=== PATIENT | male | born 1960 | race Caucasian/White ===

== ENCOUNTER → 2016-02-16 | Outpatient (CLI) | payer OTHER ==
[2016-02-16 14:53] LABS: URINE APPEARANCE CLEAR (CLEAR); URINE BILIRUBIN NEG (NEG); URINE COLOR YELLOW; URINE NITRITE NEG (NEG); URINE SPECIFIC GRAVITY 1.015 (1.000-1.030); UROBILINOGEN NEG (NEG)
[2016-02-16 14:55] LABS: BLOOD UREA NITROGEN 19 mg/dl (7-18); BUN/CREATININE RATIO 9.6 (10-20); CARBON DIOXIDE 27 mmol/L (21-32); CHLORIDE 107 mmol/L (98-107); GLUCOSE 142 mg/dl (70-99); PHOSPHORUS 1.6 mg/dl (2.5-4.9); POTASSIUM 3.9 mmol/L (3.5-5.1); SODIUM 142 mmol/L (136-145)
[2016-02-16 14:57] LABS: MANUAL MICROSCOPIC REQUIRED? NO; REVIEW REQ? NO
[2016-02-16 15:08] LABS: URINE PROTIEN/CREAT RATIO 1.1 (0-0.2); URINE TOTAL PROTEIN 157.1 mg/dl (0-11.9)
== END | disposition home or self-care (01) ==
LOC: C.LAB1850 13:01
PROVIDERS: ATTEND Internal Medicine Nephrology
DX: I12.9 Hypertensive chronic kidney disease with stage 1 through stage 4 chronic kidney disease, or unspecified chronic kidney disease (principal); N18.2 Chronic kidney disease, stage 2 (mild); R80.9 Proteinuria, unspecified; E55.9 Vitamin D deficiency, unspecified

== ENCOUNTER → 2016-04-30 | Outpatient (CLI) | payer OTHER ==
[2016-04-30 11:08] LABS: MANUAL MICROSCOPIC REQUIRED? NO; REVIEW REQ? NO; URINE APPEARANCE CLEAR (CLEAR); URINE BILIRUBIN NEG (NEG); URINE COLOR YELLOW; URINE EPITHELIAL CELL AUTO 0-5 /lpf (0-5); URINE NITRITE NEG (NEG); URINE PH 6.5 (4.5-7.5); URINE SPECIFIC GRAVITY 1.001 (1.000-1.030); UROBILINOGEN NEG (NEG)
[2016-04-30 11:16] LABS: HEMATOCRIT 42.8 % (42-52); MEAN CORPUSCULAR HEMOGLOBIN 29.7 pg (25-34); MEAN CORPUSCULAR HGB CONC 34.1 g/dl (32-36); PLATELET COUNT 280 K/uL (130-400); RED BLOOD COUNT 4.92 M/uL (4.7-6.1); WHITE BLOOD COUNT 8.18 K/uL (4.8-10.8)
[2016-04-30 11:42] LABS: BLOOD UREA NITROGEN 18 mg/dl (7-18); BUN/CREATININE RATIO 10.8 (10-20); CALCIUM 9.1 mg/dl (8.5-10.1); CARBON DIOXIDE 27 mmol/L (21-32); CHLORIDE 107 mmol/L (98-107); GLUCOSE 77 mg/dl (70-99); POTASSIUM 3.9 mmol/L (3.5-5.1); SODIUM 143 mmol/L (136-145)
[2016-04-30 11:43] LABS: PHOSPHORUS 2.7 mg/dl (2.5-4.9)
[2016-04-30 11:51] LABS: URINE PROTIEN/CREAT RATIO 1.4 (0-0.2); URINE TOTAL PROTEIN 29.4 mg/dl (0-11.9)
== END | disposition home or self-care (01) ==
LOC: C.LAB1850 10:00
PROVIDERS: ATTEND Internal Medicine Nephrology
DX: N18.2 Chronic kidney disease, stage 2 (mild) (principal); R31.29 Other microscopic hematuria; E55.9 Vitamin D deficiency, unspecified

== ENCOUNTER → 2016-10-27 | Outpatient (CLI) | payer OTHER ==
[2016-10-27 14:09] LABS: HEMATOCRIT 44.6 % (42-52); MEAN CELL VOLUME 88.8 fL (80-100); MEAN CORPUSCULAR HEMOGLOBIN 29.3 pg (25-34); MEAN PLATELET VOLUME 10.3 fL (7.4-10.4); PLATELET COUNT 289 K/uL (130-400); RED BLOOD COUNT 5.02 M/uL (4.7-6.1); WHITE BLOOD COUNT 9.19 K/uL (4.8-10.8)
[2016-10-27 14:18] LABS: URINE APPEARANCE CLEAR (CLEAR); URINE BILIRUBIN NEG (NEG); URINE COLOR YELLOW; URINE EPITHELIAL CELL AUTO 0-5 /lpf (0-5); URINE NITRITE NEG (NEG); UROBILINOGEN NEG (NEG)
[2016-10-27 14:23] LABS: MANUAL MICROSCOPIC REQUIRED? NO; REVIEW REQ? NO
[2016-10-27 14:35] LABS: URINE PROTIEN/CREAT RATIO 1.2 (0-0.2); URINE TOTAL PROTEIN 43.6 mg/dl (0-11.9)
[2016-10-27 14:36] LABS: ALT/SGPT 21 U/L (12-78); BLOOD UREA NITROGEN 20 mg/dl (7-18); BUN/CREATININE RATIO 10.8 (10-20); CALCIUM 9.1 mg/dl (8.5-10.1); CARBON DIOXIDE 26 mmol/L (21-32); CHLORIDE 109 mmol/L (98-107); GLUCOSE 86 mg/dl (70-99); POTASSIUM 3.6 mmol/L (3.5-5.1); SODIUM 140 mmol/L (136-145)
[2016-10-27 14:39] LABS: ALB/GLOB RATIO 0.7 (0.9-2); ALKALINE PHOSPHATASE 67 U/L (45-117); AST/SGOT 15 U/L (15-37)
== END | disposition home or self-care (01) ==
LOC: C.LAB1850 13:13
PROVIDERS: ATTEND Internal Medicine Nephrology
DX: I12.9 Hypertensive chronic kidney disease with stage 1 through stage 4 chronic kidney disease, or unspecified chronic kidney disease (principal); R31.29 Other microscopic hematuria; R80.9 Proteinuria, unspecified; E55.9 Vitamin D deficiency, unspecified; N18.2 Chronic kidney disease, stage 2 (mild)

== ENCOUNTER 2017-03-02 05:02 | Day surgery (SDC) | payer OTHER ==
[2017-02-08 14:37] VITALS: BMI 37.0
--- NOTE | 2017-02-08 15:06 | PAT Medication Instructions ---
Service Date Feb 08, 2017. Current Home Medication List Ibuprofen (Advil), 200 MG PO PRN Lisinopril (Zestril), 10 MG PO BID Medication Instructions For Your Scheduled Surgery - Hold the following medications 24 hours prior to surgery: Lisinopril (Zestril), 10 MG PO BID - Hold the following medications the morning of surgery: Ibuprofen (Advil), 200 MG PO PRN (otherwise okay to continue per surgeon *nothing to eat or drink after midnight If you have any questions please call us at [phone] or [phone] or [phone]
[2017-02-08 15:33] LABS: BASO % 0.5 %; BASO ABS # 0.04 K/uL (0-0.2); EOS % 1.4 %; EOS ABS # 0.12 K/uL (0-0.5); HEMATOCRIT 44.9 % (42-52); HEMOGLOBIN 15.1 g/dL (14.0-18.0); IG# 0.02 K/uL (0.00-0.02); LYMPH % 22.9 %; LYMPH ABS # 2.02 K/uL (1.2-3.4); MEAN CELL VOLUME 88.2 fL (80-100); MEAN CORPUSCULAR HEMOGLOBIN 29.7 pg (25-34); MEAN CORPUSCULAR HGB CONC 33.6 g/dl (32-36); MEAN PLATELET VOLUME 10.2 fL (7.4-10.4); MONO % 7.3 %; MONO ABS # 0.64 K/uL (0.11-0.59); NEUT % 67.7 %; NEUT ABS # 5.98 K/uL (1.4-6.5); PLATELET COUNT 267 K/uL (130-400); RED CELL DISTRIBUTION WIDTH CV 12.6 % (11.5-14.5); RED CELL DISTRIBUTION WIDTH SD 40.5 fL (36.4-46.3); WHITE BLOOD COUNT 8.82 K/uL (4.8-10.8)
[2017-02-08 16:40] LABS: CALCIUM 9.1 mg/dl (8.5-10.1); CREATININE 1.78 mg/dl (0.60-1.40); POTASSIUM 4.4 mmol/L (3.5-5.1)
[~2017-03-02] VITALS: Ht 188 cm; Wt 129.2 kg
[~2017-03-02 05:02] MED LIST: IBUP-1050 PO; LISI-461 PO
[2017-03-02 05:35] VITALS: BP 153/85; PULSE 60; TEMP 36.6; O2SAT 96; Ht 188 cm; Wt 129.2 kg
[2017-03-02] MEDS ORDERED: LACTATED RINGER'S 1000ML 1,000 ML IV SCH (06:00)
[2017-03-02] MEDS ORDERED: CEFAZOLIN 3000MG IV PUSH 15 ML IV SCH (06:00)
[2017-03-02] MEDS ORDERED: EpHEDrine SULFATE INJ 50 MG/ML AMP IV PRN (06:30)
[2017-03-02] MEDS ORDERED: PROMETHAZINE HCL INJ 12.5 MG in SODIUM CHLORIDE 0.9% 50ML 50 ML IV PRN (06:30)
[2017-03-02] MEDS ORDERED: ONDANSETRON INJ 2 MG/ML 2 ML VIAL IV PRN ×2 (06:30→07:45)
[2017-03-02] MEDS ORDERED: HYDROmorphone INJ 1 MG/ML SYR IV PRN (06:30)
[2017-03-02] MEDS ORDERED: FENTANYL CITRATE INJ 50 MCG/1 ML 2 ML VIAL IV PRN (06:30)
[2017-03-02] MEDS ORDERED: ATROPINE SULFATE 0.1 MG/ML 5ML SYR IV PRN (06:30)
[2017-03-02] MEDS ORDERED: LIDOCAINE HCL 1% 20 ML VIAL ONE (06:34)
[2017-03-02] MEDS ORDERED: BUPIVACAINE 0.5 % 5 MG/1 ML MPF 30ML VIAL ONE (06:35)
[2017-03-02] MEDS ORDERED: CEFAZOLIN SOD 1 GM VIAL ONE (06:35)
--- NOTE | 2017-03-02 06:42 | History & Physical Bridge Note ---
H&P Re-Evaluation Bridge Note: I have examined the patient, reviewed the History & Physical and in the interval since the performance of the History & Physical I have noted the following changes of clinical significance: No changes noted
[2017-03-02] MEDS ORDERED: PROPOFOL IV EMULSION 10 MG/ML 20 ML VIAL IV ONE (06:45)
[2017-03-02] MEDS ORDERED: LIDOCAINE HCL 2% 2 ML VIAL (20MG/ML) ONE (06:45)
[2017-03-02] MEDS ORDERED: FENTANYL CITRATE INJ 50 MCG/1 ML 2 ML VIAL ONE ×2 (06:45→07:14)
[2017-03-02] MEDS ORDERED: MIDAZOLAM HCL 1 MG/ML 2ML VIAL ONE (06:45)
[2017-03-02] MEDS ORDERED: ONDANSETRON INJ 2 MG/ML 2 ML VIAL ONE (06:45)
[2017-03-02] MEDS ORDERED: ACETAMINOPHEN 1000 MG/100 ML IV IV ONE (06:50)
[2017-03-02] MEDS ORDERED: NEOSTIGMINE METHYLSULFATE 5 MG/5 ML SYR ONE (07:32)
[2017-03-02] MEDS ORDERED: GLYCOPYRROLATE INJ 0.2 MG/ML VIAL ONE (07:32)
[2017-03-02] MEDS ORDERED: ROCURONIUM BROMIDE 10 MG/ML 5 ML VIAL IV ONE (07:34)
--- NOTE | 2017-03-02 07:37 | [facility] Operative Report ---
Operative Report Operative Date Mar 02, 2017. Pre-Operative Diagnosis Umbilical Hernia Post-Operative Diagnosis Same as preop Procedure(s) Performed Open Umbilical Hernia Repair Surgeon Dr. Cardenas [employer] Sales Account Executive Surgeon(s) Moises Breen PA-C Estimated Blood Loss 5 ml Findings 1.75 cm defect- no mesh placed Specimens A. Hernia Contents Anesthesia gen Complication(s) None Disposition Recovery Room / PACU I attest to the content of the Intraoperative Record and any orders documented therein. Any exceptions are noted below.
[2017-03-02] MEDS ORDERED: HYDR-5688 PO ×2 (07:39)
--- NOTE | 2017-03-02 07:41 | Discharge Instructions ---
Discharge Instructions Date of Service Mar 02, 2017. Visit Reason for Visit: Umbilical Hernia Discharge Discharge Diagnosis / Problem: umbilical hernia Discharge Goals Goal(s): Decrease discomfort, Improve function, Improve disease control Activity Recommendations Activity Limitations: as noted below Lifting Limitations: no more than 25 pounds Exercise/Sports Limitations: until after follow-up appointment May Resume Sexual Activity: when tolerated Shower/Bathe: tomorrow Driving or Machine Use: resume 3 days after discharge Anesthesia . Post Anesthesia Instructions: If you have had General Anesthesia or IV Sedation: * Do not drive today. * Resume driving when surgeon permits. * Do not make important decisions or sign legal documents today. * Call surgeon for: 1. Temperature elevations greater than 101 degrees F. 2. Uncontrollable pain. 3. Excessive bleeding. 4. Persistent nausea and vomiting. 5. Medication intolerance (nausea, vomiting or rash). * For nausea and vomiting use only clear liquids such as: tea, soda, bouillon until nausea subsides, then gradually increase diet as tolerated. * If you have any concerns or questions, call your surgeon's office. If physician is unavailable and it is an emergency, call 911 or go to the nearest emergency room. . Instructions / Follow-Up Instructions / Follow-Up SPECIAL CARE INSTRUCTIONS: * Cover incisions and change daily for comfort/drainage. * May use ibuprofen for pain as tolerated. * Expect some swelling and bruising. Call your doctor if: * Temperature above 101 degrees * Pain not relieved by pain medicine ordered * There is increased drainage or redness from any incision * You have any unanswered questions or concerns [phone]. FOLLOW UP VISIT: If not already scheduled, please call the office for a follow-up visit. for next week- some suture removal OFFICE PHONE NUMBER: Dr. Cardenas Office Diet Recommendations Recommended Home Diet: resume previous diet Procedures Procedures Performed: Open Umbilical Hernia Repair Pending Studies Studies pending at discharge: no Medical Emergencies . Who to Call and When: Medical Emergencies: If at any time you feel your situation is an emergency, please call 911 immediately. . Non-Emergent Contact Non-Emergency issues call your: Primary Care Provider, Surgeon . . "Provider Documentation" section prepared by Derrick Cardenas. .
[2017-03-02] MEDS ORDERED: HYDROCODONE/ACETAMOPHEN 5/325MG TAB PO PRN ×2 (07:45)
--- NOTE | 2017-03-02 08:06 | OPERATIVE REPORT ---
DATE OF OPERATION: 03/02/2017 NAME OF OPERATION: Umbilical hernia repair. PREOPERATIVE DIAGNOSIS: Umbilical hernia. POSTOPERATIVE DIAGNOSIS: Same. STAFF SURGEON: Dr. Derrick Cardenas. ANESTHESIA: General. OCCUPANCY SPECIALIST: Moises Breen PA-C FINDINGS: The patient had a 4-5 cm hernia sac, containing omentum and a 1.75-cm defect. DESCRIPTION OF PROCEDURE: The patient was brought into the operating room and placed on the operating table in the supine position. Pneumatic stockings and orogastric tube were placed. After appropriate intubation, his abdomen was prepped and draped in the usual fashion. Incision was made just below the umbilicus, carrying dissection down, and identifying the hernia sac, which was opened. It contained omentum. Segment of the omentum was excised. The remainder was reduced. The hernia defect was 1.75 cm. I did not feel it required mesh. The edges of the fascia were mobilized as well as dissecting the umbilicus away from the fascia. The defect was closed using interrupted 0 Ethibond suture. Some of the subcutaneous tissue was reapproximated using 2-0 plain catgut suture and then the umbilicus reattached to the deep tissue using 2-0 chromic catgut suture and then, the skin reapproximated using 5-0 Prolene suture. Dressing applied and the patient transferred to recovery room in stable condition. My customer support assistant helped with prepping and draping, exposing the hernia, repair of the hernia and closure of the abdomen. I attest to the content of the Intraoperative Record and any orders documented therein. Any exception s are noted below.
--- NOTE | 2017-03-02 08:33 | Anesthesiology Progress Note ---
Anesthesia Post Op Note Date & Time Mar 02, 2017 at 08:33 Vital Signs Pain Intensity: 0 Vital Signs Past 12 Hours Date Time Temp Pulse Resp B/P (MAP) Pulse Ox O2 Delivery O2 Flow Rate FiO2 03/02/17 08:20 36.4 60 14 129/77 94 Room Air 03/02/17 08:10 76 16 117/79 98 Oxymask 8 03/02/17 08:00 82 16 121/79 97 Oxymask 8 03/02/17 07:51 37.2 82 16 114/78 95 Oxymask 8 03/02/17 05:35 36.6 60 18 153/85 (107) 96 Room Air Notes Mental Status: alert / awake / arousable, participated in evaluation Pt Amnestic to Procedure: Yes Nausea / Vomiting: adequately controlled Pain: adequately controlled Airway Patency, RR, SpO2: stable & adequate BP & HR: stable & adequate Hydration State: stable & adequate Anesthetic Complications: no major complications apparent
[2017-03-02 08:40] VITALS: BP 133/84; PULSE 63; TEMP 36.4; O2SAT 97
[2017-03-02 09:10] VITALS: BP 133/79; PULSE 52; O2SAT 98
[2017-03-02 09:45] VITALS: BP 120/75; PULSE 58; TEMP 36.5; O2SAT 94
== END 2017-03-02 10:20 | disposition home or self-care (01) ==
LOC: C.ACU 05:02
PROVIDERS: ATTEND Surgery
DX: K42.9 Umbilical hernia without obstruction or gangrene (principal); I12.9 Hypertensive chronic kidney disease with stage 1 through stage 4 chronic kidney disease, or unspecified chronic kidney disease; N18.2 Chronic kidney disease, stage 2 (mild); Z98.52 Vasectomy status; E66.9 Obesity, unspecified; Z68.37 Body mass index [BMI] 37.0-37.9, adult; Z90.89 Acquired absence of other organs; Z83.3 Family history of diabetes mellitus

== ENCOUNTER → 2017-03-09 | Outpatient (CLI) | payer OTHER ==
[~2017-03-09] MED LIST changes: +HYDR-5688 PO
[2017-03-09 15:34] LABS: HEMATOCRIT 41.9 % (42-52); MEAN CELL VOLUME 88.8 fL (80-100); MEAN CORPUSCULAR HEMOGLOBIN 29.7 pg (25-34); MEAN CORPUSCULAR HGB CONC 33.4 g/dl (32-36); MEAN PLATELET VOLUME 10.2 fL (7.4-10.4); PLATELET COUNT 293 K/uL (130-400); RED CELL DISTRIBUTION WIDTH CV 12.8 % (11.5-14.5); RED CELL DISTRIBUTION WIDTH SD 41.1 fL (36.4-46.3); WHITE BLOOD COUNT 9.09 K/uL (4.8-10.8)
[2017-03-09 15:45] LABS: ALBUMIN 3.1 gm/dl (3.4-5.0); BLOOD UREA NITROGEN 22 mg/dl (7-18); CALCIUM 9.2 mg/dl (8.5-10.1); CARBON DIOXIDE 27 mmol/L (21-32); CREATININE 1.69 mg/dl (0.60-1.40); GLUCOSE 114 mg/dl (70-99); POTASSIUM 3.9 mmol/L (3.5-5.1); SODIUM 137 mmol/L (136-145)
== END | disposition home or self-care (01) ==
LOC: C.LAB1850 14:03
PROVIDERS: ATTEND Internal Medicine Nephrology
DX: I12.9 Hypertensive chronic kidney disease with stage 1 through stage 4 chronic kidney disease, or unspecified chronic kidney disease (principal); N18.2 Chronic kidney disease, stage 2 (mild); E55.9 Vitamin D deficiency, unspecified; R80.9 Proteinuria, unspecified

== ENCOUNTER 2022-02-28 22:36 | Observation (INO) ==
[2022-02-28] MEDS ORDERED: ASPIRIN CHEW 324 MG PO STA (23:01)
[2022-02-28] MEDS ORDERED: fentaNYL citrate 100 MCG/2 ML VIAL IV STA (23:01)
[2022-02-28] MEDS ORDERED: GI COCKTAIL ED USE PO ONE (23:01)
[2022-02-28 23:02] LABS: Basophils # (auto) 0.05 K/uL (0-0.2); Basophils % (auto) 0.4 %; Eosinophils # (auto) 0.07 K/uL (0-0.50); Eosinophils % (auto) 0.6 %; Hematocrit (blood only) 43.4 % (40.1-51.0); Hemoglobin 14.7 g/dl (14.0-18.0); Immature Granulocytes # (auto) 0.06 K/uL (0.00-0.02); Immature Granulocytes % (auto) 0.5 %; Lymphocytes # (auto) 1.24 K/uL (1.2-3.4); Lymphocytes % (auto) 10.3 %; Mean Corpuscular Hemoglobin 29.5 pg (25.0-34.0); Mean Corpuscular Hgb Conc 33.9 g/dL (32.0-36.0); Mean Platelet Volume 10.2 fL (9.4-12.4); Monocytes # (auto) 0.79 K/uL (0.24-0.82); Monocytes % (auto) 6.6 %; Neutrophils # (auto) 9.81 K/uL (1.4-6.5); Neutrophils % (auto) 81.6 %; Platelet Count 292 K/uL (130-400); RDW Coefficient of Variation 14.5 % (11.5-14.5); RDW Standard Deviation 45.7 fL (36.4-46.3); Red Blood Count 4.99 M/uL (4.63-6.08); White Blood Count 12.02 K/ul (4.8-10.8)
--- NOTE | 2022-02-28 23:07 | Emergency Department Note ---
History of Present Illness General Chief complaint: Chest Pain Stated complaint: CHEST PAIN Time Seen by Provider: 02/28/22 22:51 History of Present Illness Maximum Pain Intensity: 8 61-year-old male presents emergency department with substernal chest pressure described as burning sensation. Patient states it started at 4:30 PM approximately 2 hours after he had eaten. Patient is undergoing evaluation for a gallstone enlarged gallbladder as well. Patient has a history of CKD and hy pertension. Patient states that he took Tums at home patient states he has been evaluated in the past for similar presentation. Patient states that he cannot get the burning to resolve. States the burning is midsternal nonradiating no associated shortness of breath however he does state diaphoresis and some nausea. There are no other mitigating or alleviating factors; pt took protonix prior to arrival Home Medications Medication Instructions Recorded Confirmed Type ergocalciferol (vitamin D2) 1,250 1,250 mcg PO .COMPLEX #12 caps 08/11/21 02/18/22 Rx mcg (50,000 unit) capsule lisinopril 10 mg tablet 10 mg PO BID #90 tabs 10/20/21 02/18/22 Rx albuterol sulfate 90 mcg/actuation 2 puff inhalation .Q3HRS PRN Cough 12/03/21 02/18/22 History aerosol inhaler aspirin 81 mg tablet,delayed 81 mg PO DAILY 12/30/21 02/18/22 History release pantoprazole 40 mg tablet,delayed 40 mg PO DAILY 12/30/21 02/18/22 History release (Protonix) Allergies Allergy/AdvReac Type Severity Reaction Status Date / Time pollen extracts Allergy Mild runny nose Verified 02/18/22 09:00 adhesive Allergy Unknown TORE SKIN Verified 02/18/22 09:00 OFF WITH TAPE Past Med/Surg History Medical History Chronic kidney disease, stage II (mild) History of bronchitis Hx of kidney disease Hypertension Shingles Vitamin D deficiency Surgical History H/O colonoscopy (~2020) H/O hernia repair (03/02/17) Umbilical hernia repair H/O oral surgery Hx of appendectomy Hx of vasectomy No pertinent past surgical history Family History Mother Diabetes Other Adopted Social History Smoking Status: Never smoker Hx Alcohol Use: Yes Preferred Language: Kinyarwanda marital status: 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 How many Children do You have: 2 Feels Safe at Home: Yes during the past year weight has: remained stable Review of Systems A total of 10 systems reviewed and were otherwise negative Constitutional: no fever Respiratory: no cough Cardiovascular: + chest pain Gastrointestinal: + belching and + heartburn Physical Exam Vital Signs Vital Signs - 24 hr 02/28/22 22:37 02/28/22 22:52 02/28/22 22:50 Temperature 36.5 C Temperature Source Temporal Artery Scan Pulse Rate 78 68 Pulse Rate [Apical] 67 Pulse Rate from SpO2 Sensor Pulse Rhythm Regular Pulse Strength Normal Respiratory Rate 22 20 20 Respiratory Effort / Characteristics Non-Labored Spontaneous Respiratory Depth Normal Respiratory Pattern Regular Blood Pressure 208/103 H Blood Pressure [Left Arm] 186/102 H Blood Pressure Mean 138 Blood Pressure Mean [Left Arm] 130 Blood Pressure Position Sitting Blood Pressure Position [Left Arm] Lying Pulse Oximetry 97 95 94 Oxygen Delivery Method Room Air Room Air Room Air Sepsis Recent Fever Within 48 Hours No Sepsis New/Unexplained Change in Mental Status N/A Sepsis Action Taken by Nursing No Action Required 02/28/22 23:00 02/28/22 23:57 03/01/22 01:00 Temperature Temperature Source Pulse Rate 74 65 62 Pulse Rate [Apical] Pulse Rate from SpO2 Sensor 73 66 60 Pulse Rhythm Pulse Strength Respiratory Rate 13 17 16 Respiratory Effort / Characteristics Respiratory Depth Respiratory Pattern Blood Pressure 199/111 H 189/95 H Blood Pressure [Left Arm] Blood Pressure Mean 140 126 Blood Pressure Mean [Left Arm] Blood Pressure Position Blood Pressure Position [Left Arm] Pulse Oximetry 98 99 98 Oxygen Delivery Method Room Air Room Air Room Air Sepsis Recent Fever Within 48 Hours Sepsis New/Unexplained Change in Mental Status Sepsis Action Taken by Nursing GENERAL: Patient is awake alert in no acute distress patient is resting comfortably and showing no signs of anxiety EYES: The conjunctivae are clear. The pupils are round and reactive. EARS, NOSE, MOUTH AND THROAT: The nose is without any evidence of any deformity. Mucous membranes are moist. Tongue is midline. NECK: The neck is nontender and supple. RESPIRATORY: Normal respiratory effort is noted there is no evidence of wheezing rhonchi or rales CARDIOVASCULAR: Regular rate and rhythm noted there no murmurs rubs or gallops normal S1 normal S2. GASTROINTESTINAL: The abdomen is soft. Abdomen is nontender. BACK: No midline tenderness or or step-off noted range of motion in flexion extension as well as rotation no signs of muscle spasm noted MUSCULOSKELETAL/EXTREMITIES: There is no evidence of gross deformity full range of motion is noted in the hips and shoulders. SKIN: There is no obvious evidence of any rash. There are no petechiae, pallor or cyanosis noted. NEUROLOGIC: Patient is awake alert and oriented x3 strength is symmetric PSYCH: Normal affect Course Reevaluation(s) Reevaluation #1: Patient's burning sensation in the chest has decreased significantly. I discussed evaluation with the patient at bedside. There is also decreased Time: : Consultations Consultation #1: Sp[facility] in this patient will be admitted inpatient for further evaluation of chest pain Time: :46 Administered Medications Discontinued Medications Al Hydrox/Mg Hydrox/Simethicone (Gi Cocktail Ed Use) 1 dose PO ONE ONE Stop: 02/28/22 23:02 Last Admin: 02/28/22 23:13 Dose: 1 dose Documented By: AKI Aspirin (Aspirin Chew 324 Mg) 324 mg PO NOW STA Stop: 02/28/22 23:02 Last Admin: 02/28/22 23:11 Dose: 324 mg Documented By: AKI Fentanyl Citrate (Fentanyl Citrate 100 Mcg/2 Ml Vial) 50 mcg IV NOW STA Stop: 02/28/22 23:02 Last Admin: 02/28/22 23:11 Dose: 50 mcg Documented By: AKI Fentanyl Citrate (Fentanyl Citrate 100 Mcg/2 Ml Vial) 50 mcg IV NOW STA Stop: 03/01/22 00:04 Last Admin: 03/01/22 00:10 Dose: 50 mcg Documented By: AKI Medical Decision Making Medical Records Attestation: I reviewed the patient's medical records. Home Medications Current Medication List: was personally reviewed by me Laboratory Data Attestation: I reviewed the patient's lab results. Patient has a history of CKD his creatinine is around baseline, delta troponin i ncreased from 7-11 however still negative at this time 02/28/22 22:45 02/28/22 22:45 Lab Results 02/28/22 02/28/22 03/01/22 Range/Units 22:45 22:45 00:39 WBC 12.02 H (4.8-10.8) K/ul RBC 4.99 (4.63-6.08) M/uL Hgb 14.7 (14.0-18.0) g/dl Hct 43.4 (40.1-51.0) % MCV 87.0 (80.0-100.0) fL MCH 29.5 (25.0-34.0) pg MCHC 33.9 (32.0-36.0) g/dL RDW Std Deviation 45.7 (36.4-46.3) fL RDW Coeff of Tessa 14.5 (11.5-14.5) % Plt Count 292 (130-400) K/uL MPV 10.2 (9.4-12.4) fL Immature Gran % (Auto) 0.5 % Neut % (Auto) 81.6 % Lymph % (Auto) 10.3 % [place] % (Auto) 6.6 % Eos % (Auto) 0.6 % Baso % (Auto) 0.4 % Neut # (Auto) 9.81 H (1.4-6.5) K/uL Lymph # (Auto) 1.24 (1.2-3.4) K/uL [place] # (Auto) 0.79 (0.24-0.82) K/uL Eos # (Auto) 0.07 (0-0.50) K/uL Baso # (Auto) 0.05 (0-0.2) K/uL Immature Gran # (Auto) 0.06 H (0.00-0.02) K/uL Sodium 139 (136-145) mmol/L Potassium 4.0 (3.5-5.1) mmol/L Chloride 105 (98-107) mmol/L Carbon Dioxide 27 (21-32) mmol/L Anion Gap 7 (3-11) BUN 27 H (6-23) mg/dl Creatinine 2.48 H (0.6-1.4) mg/dl Est Cr Clr Drug Dosing 43.9 ml/min Est GFR ( Amer) 31.3 ml/min Est GFR (Non-Af Amer) 27.0 ml/min BUN/Creatinine Ratio 10.9 (10-20) Glucose 162 H (70-99(Fasting)) mg/dl Calcium 9.5 (8.5-10.1) mg/dl Total Bilirubin 0.4 (0.2-1.0) mg/dl AST 16 (13-39) U/L ALT 16 (7-52) U/L Alkaline Phosphatase 72 (34-104) U/L Troponin I High Sens 7.0 11.9 D (0-20) pg/ml Total Protein 7.6 (6.0-8.3) gm/dl Albumin 4.1 (3.4-5.0) gm/dl Globulin 3.5 (2.5-4.0) gm/dl Albumin/Globulin Ratio 1.2 (0.9-2) Lipase 56 (11-82) U/L Imaging Data Attestation: I personally reviewed and interpreted this imaging study as follows: My Impression: Review she reports Radiologist's Impression: Chest X-Ray 02/28/22 22:52 SINGLE VIEW CHEST CLINICAL HISTORY: Atypical chest pain FINDINGS: An AP, portable, upright chest radiograph is compared to study dated 12/03/2021. The heart is enlarged. The pulmonary vasculature is noncongested. The lungs and pleural spaces are clear noting bibasilar scarring/atelectasis. No pneumothorax is seen. The skeletal structures are osteopenic. The bony thorax is grossly intact. IMPRESSION: No acute cardiopulmonary abnormality. ACT 112: Negative or not required by law. Electronically signed by: Zelalem Crowe M.D. 02/28/2022 11:15 PM Gallbladder Ultrasound 02/28/22 23:08 ULTRASOUND RIGHT UPPER QUADRANT ABDOMEN CLINICAL HISTORY: Epigastric and right upper quadrant abdominal pain. COMPARISON STUDY: No priors. TECHNIQUE: Real-time, grayscale, and color flow sonography of the right upper quadrant of the abdomen was performed. Images are reviewed in the transverse and longitudinal planes. FINDINGS: Liver: The liver is top normal in size and demonstrates heterogeneous increased echotexture suggesting steatosis. There is no intrahepatic biliary ductal dilatation. The main portal vein is patent. Gallbladder: There are numerous shadowing calcified gallstones. There is no gallbladder wall thickening or pericholecystic fluid. A sonographic Burciaga's could not be assessed as the patient received analgesia. The common bile duct measures up to 0.4 cm in diameter. Pancreas: Not visualized due to overlying bowel gas. Right kidney: Survey images of the right kidney demonstrate cortical atrophy. Echotexture is increased suggesting medical renal disease. There is no hydronephrosis. Ascites: None. IMPRESSION: 1. Cholelithiasis without sonographic evidence of acute cholecystitis. 2. Hepatic steatosis. 3. Nonvisualization of the pancreas. ACT 112: Negative or not required by law. Electronically signed by: Zelalem Crowe M.D. 03/01/2022 12:25 AM ECG Data Attestation: I personally reviewed and interpreted this ECG as follows: Additional Comments: EKG interpreted by me normal sinus rhythm rate of 84 normal intervals normal axis no obvious ST segment elevation or depression no prior currently available for comparison MDM Narrative Medical decision making gnosis includes angina unstable angina acute coronary syndrome acute NM acute cholecystitis acute biliary colic acute gastritis acute esophagitis. Plan is to check EKG, labs, chest x-ray, ultrasound. Patient will be started on GI cocktail aspirin and IV opiate. Nurses notes have been reviewed by me EKG interpreted independently by me Nephrology note of February 22, 2022 was reviewed by me -patient has a history of stable hypertension and CKD Patient has a slight elevation in white blood cell count has Cholelithiasis without evidence of cholecystitis on ultrasound, has a troponin that increased from 7-11, has a nonischemic EKG. Patient's heart score is a 4. Patient will be admitted to the hospitalist service and that is agreed upon by Dr. Martinez at 1:45 AM Patient will be further evaluated for chest pain and this. At this point time I do not suspect cholecystitis as the cause of this patient's pain it seems to be more in his chest. Patient did have elevated blood pressure that was treated with IV opiates, patient was also given aspirin. Impression & Plan Chest pain, Cholelithiasis, HTN (hypertension) Discharge Plan Visit Data Chief Complaint: Chest Pain Stated Complaint: CHEST PAIN ED Provider: Bart Luna Discharge Problem: Chest pain, Cholelithiasis, HTN (hypertension) Patient Disposition: Admitted As Inpatient Forms Stand Alone Forms: My [facility] Prescriptions Prescriptions: No Action ergocalciferol (vitamin D2) 1,250 mcg (50,000 unit) capsule 1,250 mcg PO .COMPLEX Qty: 12 0RF Rx Instructions: 1,250 mcg PO monthly as maintenance dosing; lisinopril 10 mg tablet 10 mg PO BID Qty: 90 3RF aspirin 81 mg tablet,delayed release (DR/EC) 81 mg PO DAILY pantoprazole [Protonix] 40 mg tablet,delayed release (DR/EC) 40 mg PO DAILY albuterol sulfate 90 mcg/actuation HFA aerosol inhaler 2 puff INHALATION .Q3HRS PRN (Reason: Cough) Referrals Referrals: Fernando Pennington DO [Primary Care Provider] -
--- NOTE | 2022-02-28 23:17 | XRay Report ---
SINGLE VIEW CHEST CLINICAL HISTORY: Atypical chest pain FINDINGS: An AP, portable, upright chest radiograph is compared to study dated 12/03/2021. The heart is enlarged. The pulmonary vasculature is noncongested. The lungs and pleural spaces are clear noting bibasilar scarring/atelectasis. No pneumothorax is seen. The skeletal structures are osteopenic. The bony thorax is grossly intact. IMPRESSION: No acute cardiopulmonary abnormality. ACT 112: Negative or not required by law. Electronically signed by: Zelalem Crowe M.D. 02/28/2022 11:15 PM
[2022-02-28 23:24] LABS: Albumin Globulin Ratio 1.2 (0.9-2); Albumin Level 4.1 gm/dl (3.4-5.0); BUN Creatinine Ratio 10.9 (10-20); Bilirubin,Total 0.4 mg/dl (0.2-1.0); Calcium 9.5 mg/dl (8.5-10.1); Creatinine Clr Calc Pharmacy 43.9 ml/min; Est GFR (African American) 31.3 ml/min; Globulin 3.5 gm/dl (2.5-4.0); Total Protein 7.6 gm/dl (6.0-8.3)
[2022-03-01] MEDS ORDERED: fentaNYL citrate 100 MCG/2 ML VIAL IV STA (00:03)
--- NOTE | 2022-03-01 00:28 | Ultrasound Report ---
ULTRASOUND RIGHT UPPER QUADRANT ABDOMEN CLINICAL HISTORY: Epigastric and right upper quadrant abdominal pain. COMPARISON STUDY: No priors. TECHNIQUE: Real-time, grayscale, and color flow sonography of the right upper quadrant of the abdomen was performed. Images are reviewed in the transverse and longitudinal planes. FINDINGS: Liver: The liver is top normal in size and demonstrates heterogeneous increased echotexture suggestin g steatosis. There is no intrahepatic biliary ductal dilatation. The main portal vein is patent. Gallbladder: There are numerous shadowing calcified gallstones. There is no gallbladder wall thickeni ng or pericholecystic fluid. A sonographic Burciaga's could not be assessed as the patient received gladis lgesia. The common bile duct measures up to 0.4 cm in diameter. Pancreas: Not visualized due to overlying bowel gas. Right kidney: Survey images of the right kidney demonstrate cortical atrophy. Echotexture is increase d suggesting medical renal disease. There is no hydronephrosis. Ascites: None. IMPRESSION: 1. Cholelithiasis without sonographic evidence of acute cholecystitis. 2. Hepatic steatosis. 3. Nonvisualization of the pancreas. ACT 112: Negative or not required by law. Electronically signed by: Zelalem Crowe M.D. 03/01/2022 12:25 AM
[2022-03-01] MEDS ORDERED: MoRPHine SULFATE 4 MG/ML 1 ML CARP\\VIAL IV STA (01:56)
--- NOTE | 2022-03-01 02:14 | History & Physical Report ---
Date of Service March 01, 2022 Assessment & Plan (1) Chest pain: Plan: 61yo male with history of HTN, CKD presenting with acute onset of substernal chest discomfort. Chest discomfort now resolved. Atypical. Negative stress test outpatient 1 month ago. Do not strongly suspect cardiac origin or ACS. Troponin did increase slightly. EKG with no acute ischemic changes -Telemetry monitoring -Trend Troponin -ASA 81mg po daily -Nitro PRN CP -Morphine PRN pain -Continue Protonix -Maalox PRN Left sided rib pain - etiology uncertain. Patient has had similar with negative workup. No direct trauma to the area. No bruising, crepitus or rash. Normal chest wall mechanics with inspiration/expiration. -Check rib series -Morphine ordered. (2) Chronic kidney disease, stage II (mild): Plan: BUN and Cr are near baseline -Avoid nephrotoxic agents -Renal dosing where needed (3) Hypertension: Plan: Elevated blood pressure in ER -Pain control with Morphine PRN -Continue Lisinopril 10mg po BID History of Present Illness Chief Complaint: chest pain Primary Care Provider: DO Porter Miller is a 61yo male with history of HTN, CKD presenting with chest dis comfort and left rib pain. Patient reports he was at home this evening touching up some paint on the sharp around 19:30 when he developed acute onset of burning pain in his left chest as well as increased belching and diaphoresis. He took some TUMS at home with minimal relief. Patient with similar pain in the past. He was recently at [facility] ER appx 1.5 months ago. Per history, was treated mostly for GI discomfort at that time. He did have an exercise stress test approximately 1 month ago that was unremarkable. No prior [place]. No history of catheterization. He is active and denies exertional symptoms of dyspnea or chest pain. Patient presented to the ER, hypertensive, otherwise HD stable. He was given Fentanyl, ASA and Maalox in the ER with some improvement in substernal pain but is how having severe left sided pinching pain. He did fall today while throwing a ball at [facility]- landed more on his right side and back. ER Course: Maalox ASA Fentanyl Allergies Allergy/AdvReac Type Severity Reaction Status Date / Time pollen extracts Allergy Mild runny nose Verified 02/18/22 09:00 adhesive Allergy Unknown TORE SKIN Verified 02/18/22 09:00 OFF WITH TAPE Home Medications Medication Instructions Recorded Confirmed Type ergocalciferol (vitamin D2) 1,250 1,250 mcg PO .COMPLEX #12 caps 08/11/21 02/18/22 Rx mcg (50,000 unit) capsule lisinopril 10 mg tablet 10 mg PO BID #90 tabs 10/20/21 02/18/22 Rx albuterol sulfate 90 mcg/actuation 2 puff inhalation .Q3HRS PRN Cough 12/03/21 02/18/22 History aerosol inhaler aspirin 81 mg tablet,delayed 81 mg PO DAILY 12/30/21 02/18/22 History release pantoprazole 40 mg tablet,delayed 40 mg PO DAILY 12/30/21 02/18/22 History release (Protonix) Past Med/Surg History Medical History Chronic kidney disease, stage II (mild) History of bronchitis Hx of kidney disease Hypertension Shingles Vitamin D deficiency Surgical History H/O colonoscopy (~2020) H/O hernia repair (03/02/17) Umbilical hernia repair H/O oral surgery Hx of appendectomy Hx of vasectomy No pertinent past surgical history Family History Mother Diabetes Other Adopted Social History Smoking Status: Never smoker Hx Alcohol Use: Yes Preferred Language: Estonian marital status: 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 How many Children do You have: 2 Feels Safe at Home: Yes during the past year weight has: remained stable Review of Systems Review of Systems: All systems reviewed & are unremarkable except as noted in HPI & below Physical Exam Physical Exam: General: patient resting, uncomfortable with pain in left ribs, NAD, non-toxic in appearance, AA&O x 4 Skin: warm, dry, intact, no rashes or lesions HEENT: NC/AT, PERRL, EOMI, anicteric sclera, conjunctiva without injection, external ear normal to inspection and nontender, nares patent, moist mucus membranes, dentition intact, no oropharyngeal lesions, neck supple, trachea midline, no LAD, no thyromegaly, no JVD Heart: +S1/S2, regular, no m/r/g, no reproducible chest wall pain, point tenderness at left lower rib Lungs: equal air entry bilaterally, no rales/rhonchi/wheezes Abd: +BS, soft, tender in the epigastric area as well as LLQ. Tenderness over left ribs. No bruising, crepitus or rash Ext: warm, 2+ pulses in UE/LE bilaterally, no clubbing/cyanosis or edema Neuro: nonfocal, patient AA&O x 4, speech intact, no facial droop, moving all extremities on command with equal strength 5/5 Results & Data Results & Data ([facility]) Vital Signs (Past 12 Hours) Vital Signs Temp Pulse Pulse Resp BP BP Pulse Ox 03/01/22 01:00 62 16 189/95 H 98 02/28/22 23:57 65 17 199/111 H 99 02/28/22 23:00 74 13 98 02/28/22 22:50 67 20 186/102 H 94 02/28/22 22:52 68 20 95 02/28/22 22:37 36.5 C 78 22 208/103 H 97 O2 Del Method 03/01/22 01:00 Room Air 02/28/22 23:57 Room Air 02/28/22 23:00 Room Air 02/28/22 22:50 Room Air 02/28/22 22:52 Room Air 02/28/22 22:37 Room Air Laboratory Results Laboratory Results WBC 12.02 K/ul (4.8-10.8) H 02/28/22 22:45 RBC 4.99 M/uL (4.63-6.08) 02/28/22 22:45 Hgb 14.7 g/dl (14.0-18.0) 02/28/22 22:45 Hct 43.4 % (40.1-51.0) 02/28/22 22:45 MCV 87.0 fL (80.0-100.0) 02/28/22 22:45 MCH 29.5 pg (25.0-34.0) 02/28/22 22:45 MCHC 33.9 g/dL (32.0-36.0) 02/28/22 22:45 RDW Std Deviation 45.7 fL (36.4-46.3) 02/28/22 22:45 RDW Coeff of Tessa 14.5 % (11.5-14.5) 02/28/22 22:45 Plt Count 292 K/uL (130-400) 02/28/22 22:45 MPV 10.2 fL (9.4-12.4) 02/28/22 22:45 Immature Gran % (Auto) 0.5 % 02/28/22 22:45 Neut % (Auto) 81.6 % 02/28/22 22:45 Lymph % (Auto) 10.3 % 02/28/22 22:45 [place] % (Auto) 6.6 % 02/28/22 22:45 Eos % (Auto) 0.6 % 02/28/22 22:45 Baso % (Auto) 0.4 % 02/28/22 22:45 Neut # (Auto) 9.81 K/uL (1.4-6.5) H 02/28/22 22:45 Lymph # (Auto) 1.24 K/uL (1.2-3.4) 02/28/22 22:45 [place] # (Auto) 0.79 K/uL (0.24-0.82) 02/28/22 22:45 Eos # (Auto) 0.07 K/uL (0-0.50) 02/28/22 22:45 Baso # (Auto) 0.05 K/uL (0-0.2) 02/28/22 22:45 Immature Gran # (Auto) 0.06 K/uL (0.00-0.02) H 02/28/22 22:45 Sodium 139 mmol/L (136-145) 02/28/22 22:45 Potassium 4.0 mmol/L (3.5-5.1) 02/28/22 22:45 Chloride 105 mmol/L (98-107) 02/28/22 22:45 Carbon Dioxide 27 mmol/L (21-32) 02/28/22 22:45 Anion Gap 7 (3-11) 02/28/22 22:45 BUN 27 mg/dl (6-23) H 02/28/22 22:45 Creatinine 2.48 mg/dl (0.6-1.4) H 02/28/22 22:45 Est Cr Clr Drug Dosing 43.9 ml/min 02/28/22 22:45 Est GFR ( Amer) 31.3 ml/min 02/28/22 22:45 Est GFR (Non-Af Amer) 27.0 ml/min 02/28/22 22:45 BUN/Creatinine Ratio 10.9 (10-20) 02/28/22 22:45 Glucose 162 mg/dl (70-99(Fasting)) H 02/28/22 22:45 Calcium 9.5 mg/dl (8.5-10.1) 02/28/22 22:45 Total Bilirubin 0.4 mg/dl (0.2-1.0) 02/28/22 22:45 AST 16 U/L (13-39) 02/28/22 22:45 ALT 16 U/L (7-52) 02/28/22 22:45 Alkaline Phosphatase 72 U/L (34-104) 02/28/22 22:45 Troponin I High Sens 11.9 pg/ml (0-20) D 03/01/22 00:39 Total Protein 7.6 gm/dl (6.0-8.3) 02/28/22 22:45 Albumin 4.1 gm/dl (3.4-5.0) 02/28/22 22:45 Globulin 3.5 gm/dl (2.5-4.0) 02/28/22 22:45 Albumin/Globulin Ratio 1.2 (0.9-2) 02/28/22 22:45 Lipase 56 U/L (11-82) 02/28/22 22:45 Impressions Chest X-Ray 02/28/22 22:52 SINGLE VIEW CHEST CLINICAL HISTORY: Atypical chest pain FINDINGS: An AP, portable, upright chest radiograph is compared to study dated 12/03/2021. The heart is enlarged. The pulmonary vasculature is noncongested. The lungs and pleural spaces are clear noting bibasilar scarring/atelectasis. No pneumothorax is seen. The skeletal structures are osteopenic. The bony thorax is grossly intact. IMPRESSION: No acute cardiopulmonary abnormality. ACT 112: Negative or not required by law. Electronically signed by: Zelalem Crowe M.D. 02/28/2022 11:15 PM Gallbladder Ultrasound 02/28/22 23:08 ULTRASOUND RIGHT UPPER QUADRANT ABDOMEN CLINICAL HISTORY: Epigastric and right upper quadrant abdominal pain. COMPARISON STUDY: No priors. TECHNIQUE: Real-time, grayscale, and color flow sonography of the right upper quadrant of the abdomen was performed. Images are reviewed in the transverse and longitudinal planes. FINDINGS: Liver: The liver is top normal in size and demonstrates heterogeneous increased echotexture suggesting steatosis. There is no intrahepatic biliary ductal dilatation. The main portal vein is patent. Gallbladder: There are numerous shadowing calcified gallstones. There is no gallbladder wall thickening or pericholecystic fluid. A sonographic Burciaga's could not be assessed as the patient received analgesia. The common bile duct measures up to 0.4 cm in diameter. Pancreas: Not visualized due to overlying bowel gas. Right kidney: Survey images of the right kidney demonstrate cortical atrophy. Echotexture is increased suggesting medical renal disease. There is no hydronephrosis. Ascites: None. IMPRESSION: 1. Cholelithiasis without sonographic evidence of acute cholecystitis. 2. Hepatic steatosis. 3. Nonvisualization of the pancreas. ACT 112: Negative or not required by law. Electronically signed by: Zelalem Crowe M.D. 03/01/2022 12:25 AM ECG Additional Comments: EKG wtih NS at 84, normal axis, ES=241, QRS=88, YRa=272, no acute ischemic changes Code Status & VTE Plan VTE Prophylaxis Plan VTE Prophylaxis will be ordered: Yes PG Care Time/CCT Total # of Minutes Spent Total Time Spent with Patient: Total time spent is greater than 50% in coordination of care (as documented) at patient's floor/unit and/or counseling patient: Coding Level of Care Code 74059 INT INP/OBS CARE 2/55MIN Diagnoses Chest pain R07.9 Chronic kidney disease, stage II (mild) N18.2 Hypertension I10
[2022-03-01] MEDS ORDERED: NITROGLYCERIN SL 0.4 MG/TAB TAB SL PRN (05:08)
[2022-03-01] MEDS ORDERED: ALUMINUM/MAGNESIUM SUSP 30 ML UDC PO PRN (05:08)
[2022-03-01] MEDS ORDERED: ACETAMINOPHEN 325 MG TAB PO PRN (05:08)
[2022-03-01] MEDS ORDERED: POLYETHYLENE (MIRALAX) 17 GM PACK PO PRN (05:08)
[2022-03-01] MEDS ORDERED: ONDANSETRON INJ 2 MG/ML 2 ML VIAL IV PRN (05:08)
[2022-03-01] MEDS ORDERED: DOCUSATE SODIUM 100 MG CAP PO PRN (05:08)
[2022-03-01] MEDS ORDERED: MoRPHine SULFATE 4 MG/ML 1 ML CARP\\VIAL IV PRN (05:08)
[2022-03-01] MEDS ORDERED: MoRPHine SULFATE 2 MG/ML CARP IV PRN (05:08)
[2022-03-01] MEDS ORDERED: lisinopril 10 MG TAB PO SCH (09:00)
[2022-03-01] MEDS ORDERED: ASPIRIN 81 MG ECTAB PO SCH (09:00)
[2022-03-01] MEDS ORDERED: PANTOprazole 40 MG TAB PO SCH (09:00)
--- NOTE | 2022-03-01 14:46 | XRay Report ---
XR ribs LT min 2V CLINICAL HISTORY: point tenderness, left rib TECHNIQUE: 3 views of the right ribs were obtained. Single frontal view of the chest was obtained. Comparison: None available at the time of this dictation. FINDINGS: No fractures are seen. The chest wall and soft tissues are normal. The cardiomediastinal silhouette is normal. The lungs are clear. No evidence of pleural effusion or p neumothorax. IMPRESSION: No evidence of acute fracture or other acute abnormalities in the visualized portions of the chest. ACT 112: Negative or not required by law. Electronically signed by: Reji Diaz M.D. 03/01/2022 2:44 PM
[2022-03-01 15:53] LABS: Hematocrit (blood only) 44.9 % (40.1-51.0); Hemoglobin 15.3 g/dl (14.0-18.0); Mean Corpuscular Hemoglobin 29.4 pg (25.0-34.0); Mean Corpuscular Hgb Conc 34.1 g/dL (32.0-36.0); Mean Corpuscular Volume 86.2 fL (80.0-100.0); Mean Platelet Volume 10.1 fL (9.4-12.4); Platelet Count 252 K/uL (130-400); RDW Coefficient of Variation 14.6 % (11.5-14.5); Red Blood Count 5.21 M/uL (4.63-6.08); White Blood Count 10.99 K/ul (4.8-10.8)
--- NOTE | 2022-03-01 15:56 | XCELERA ---
[id number]
--- NOTE | 2022-03-01 15:58 | Cardiology Consultation ---
Date of Consultation March 01, 2022 Assessment & Plan (1) Chest pain: (2) Hypertension: (3) Bradycardia: Plan ASSESSMENT/PLAN: 1. Chest pain: Atypical. Chest pain is not consistent with ischemic heart disease. The chest pain that he describes is actually epigastric (he points to the epigastric area). Epigastric area is tender. Symptoms improve with belching and following GI cocktail. Has documented gastritis with EGD performed at an outside facility in Jan 2022. He also reports unremarkable noninvasive ischemic evaluation done at an outside facility. Ischemic evaluation not necessary here. Echo recommended and ordered and since completed to evaluate for structural abnormalities. 2. Hypertension: Blood pressure has remained elevated. This has been managed as an outpatient with nephrology. Given creatinine on presentation higher than baseline, could consider additional antihypertensive agent such as amlodipine to further improve blood pressure. 3. Bradycardia: He reports bradycardia at an outside facility when awaiting his EGD. He was asymptomatic. No significant bradycardia here and no symptoms to suggest chronotropic incompetence. He reports pending outpatient cardiology appointment. Consider outpatient monitoring, which can be completed at his upcoming appointment. 4. Disposition: Patient care and plan discussed with Dr. Lomax of the primary hospitalist service. Please call with any further questions or concerns. Thank you for allowing me to participate in the care of your patient. Please call for any other questions or concerns. Sincerely, Darryn Persuad M.D. History of Present Illness Reason for Consultation: Chest pain Requesting Physician: Vitaly Lomax Attending Physician: Vitaly Lomax History of Present Illness Mr. Westbrook is a pleasant 61-year-old gentleman with a history significant for gastritis, hypertension, and CKD. He was admitted on 02/28/2022 with chest pain. He reports having chest pain for several months described as a epigastric gas type pain. It would cause him to belch. He would feel better with belching. Symptoms can last for greater than 3 hours. He was prescribed pantoprazole approximately 2 months ago and had no recurrence of his pain until the day of presentation, 02/28/2022, after eating pizza. He had been trying to avoid foods such as tomato based sauces and had been feeling better. In the emergency department he reports having GI cocktail which helped improve symptoms but then he had a left lateral rib pain, like "acid" was burning through. He denies exertional chest discomfort. Discomfort tends to occur sometime after eating and laying down. He ate supper yesterday at 4:30 PM and then laid down to take a nap. When he got up, he noted the pain. This particular presentation lasted for several hours. He tries to stay active but does not exercise. He walks [id number] steps per day and had walked more in the past. He denies exertional chest pain. He denies shortness of breath, syncope, near syncope, palpitations, edema, or bleeding. He had an EGD with [facility] on 01/21/2022 which demonstrated gastritis. He reports that he had a low heart rate while being monitored with heart rates in the 40s. He was asymptomatic. He also states that he has gallbladder issues and has been seen by surgery. He believes that the gallbladder may be playing a role in his presentation. His baseline creatinine is near 2. He follows with nephrology. Review of systems: As above. Review of systems otherwise negative/unremarkable. Family history: He was a foster child and therefore does not know his family history. Social history: He denies tobacco or drug abuse. Rare alcohol. Lives at home with his . Has 2 adult sons. 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 He is unaccompanied today. Allergies Allergy/AdvReac Type Severity Reaction Status Date / Time pollen extracts Allergy Mild runny nose Verified 02/18/22 09:00 adhesive Allergy Unknown TORE SKIN Verified 02/18/22 09:00 OFF WITH TAPE Home Medications Medication Instructions Recorded Confirmed Type ergocalciferol (vitamin D2) 1,250 1,250 mcg PO .COMPLEX #12 caps 08/11/21 02/18/22 Rx mcg (50,000 unit) capsule lisinopril 10 mg tablet 10 mg PO BID #90 tabs 10/20/21 02/18/22 Rx albuterol sulfate 90 mcg/actuation 2 puff inhalation .Q3HRS PRN Cough 12/03/21 02/18/22 History aerosol inhaler aspirin 81 mg tablet,delayed 81 mg PO DAILY 12/30/21 02/18/22 History release pantoprazole 40 mg tablet,delayed 40 mg PO DAILY 12/30/21 02/18/22 History release (Protonix) Patient History Medical History Chronic kidney disease, stage II (mild) History of bronchitis Hx of kidney disease Hypertension Shingles Vitamin D deficiency Surgical History H/O colonoscopy (~2020) H/O hernia repair (03/02/17) Umbilical hernia repair H/O oral surgery Hx of appendectomy Hx of vasectomy No pertinent past surgical history Family History Mother Diabetes Other Adopted Social History Smoking Status: Never smoker Hx Alcohol Use: Yes Hx Substance Use: No Preferred Language: Spanish Communication Ability: Effective Sample Patternmaker Required: No Beliefs That Will Affect Care: None marital status: Current Living Situation: Spouse 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 Alert and oriented. HEENT: Anicteric sclera. Neck: No JVD. No bruits. Normal carotid upstrokes bilaterally. Cardiac: PMI was nonpalpable. No ventricular heave. Regular. Normal S1-S2. No murmurs, rubs, or gallops. Pulmonary: Clear to auscultation bilaterally without wheezes, rales, or rhonchi. Abdomen: Soft, nondistended, with normoactive bowel sounds. No bruits noted. Epigastric tenderness, reproducing discomfort as described in HPI, but less severe. Extremities: 2+ radial pulses bilaterally. 2+ posterior tibialis pulses bilaterally. Trace bilateral lower extremity edema. No cyanosis. Psychiatric: Affect appears appropriate. When he was asked to sit up for auscultation of his posterior lung jiménez, he developed right upper quadrant pain, which was relieved when repositioned. Results & Data ([facility]) Vital Signs (Past 12 Hours) Vital Signs Temp Pulse Pulse Pulse Resp BP BP 03/01/22 15:34 37.5 C 73 16 145/77 H 03/01/22 15:28 82 03/01/22 12:08 37.1 C 92 H 16 170/92 H 03/01/22 07:54 36.9 C 91 H 16 175/97 H 03/01/22 06:54 66 03/01/22 04:58 111 H 03/01/22 05:18 03/01/22 05:18 36.9 C 61 18 157/86 H 03/01/22 05:08 36.9 C 61 18 157/86 H 03/01/22 04:30 65 18 164/87 H 03/01/22 04:00 67 18 160/72 H Pulse Ox O2 Del Method 03/01/22 15:34 95 Room Air 03/01/22 15:28 03/01/22 12:08 97 Room Air 03/01/22 07:54 96 Room Air 03/01/22 06:54 03/01/22 04:58 03/01/22 05:18 Room Air 03/01/22 05:18 96 Room Air 03/01/22 05:08 96 Room Air 03/01/22 04:30 96 03/01/22 04:00 96 Laboratory Results Laboratory Results - last 24 hr 02/28/22 02/28/22 03/01/22 22:45 22:45 00:39 WBC 12.02 H RBC 4.99 Hgb 14.7 Hct 43.4 MCV 87.0 MCH 29.5 MCHC 33.9 RDW Std Deviation 45.7 RDW Coeff of Tessa 14.5 Plt Count 292 MPV 10.2 Immature Gran % (Auto) 0.5 Neut % (Auto) 81.6 Lymph % (Auto) 10.3 [place] % (Auto) 6.6 Eos % (Auto) 0.6 Baso % (Auto) 0.4 Neut # (Auto) 9.81 H Lymph # (Auto) 1.24 [place] # (Auto) 0.79 Eos # (Auto) 0.07 Baso # (Auto) 0.05 Immature Gran # (Auto) 0.06 H Sodium 139 Potassium 4.0 Chloride 105 Carbon Dioxide 27 Anion Gap 7 BUN 27 H Creatinine 2.48 H Est Cr Clr Drug Dosing 43.9 Est GFR ( Amer) 31.3 Est GFR (Non-Af Amer) 27.0 BUN/Creatinine Ratio 10.9 Glucose 162 H Calcium 9.5 Total Bilirubin 0.4 AST 16 ALT 16 Alkaline Phosphatase 72 Troponin I High Sens 7.0 11.9 D C-Reactive Protein Total Protein 7.6 Albumin 4.1 Globulin 3.5 Albumin/Globulin Ratio 1.2 Lipase 56 Procalcitonin SARS-CoV-2, RNA, NAAT 03/01/22 03/01/22 03/01/22 01:50 05:46 10:50 WBC RBC Hgb Hct MCV MCH MCHC RDW Std Deviation RDW Coeff of Tessa Plt Count MPV Immature Gran % (Auto) Neut % (Auto) Lymph % (Auto) [place] % (Auto) Eos % (Auto) Baso % (Auto) Neut # (Auto) Lymph # (Auto) [place] # (Auto) Eos # (Auto) Baso # (Auto) Immature Gran # (Auto) Sodium Potassium Chloride Carbon Dioxide Anion Gap BUN Creatinine Est Cr Clr Drug Dosing Est GFR ( Amer) Est GFR (Non-Af Amer) BUN/Creatinine Ratio Glucose Calcium Total Bilirubin AST ALT Alkaline Phosphatase Troponin I High Sens 19.4 D Cancelled C-Reactive Protein Total Protein Albumin Globulin Albumin/Globulin Ratio Lipase Procalcitonin SARS-CoV-2, RNA, NAAT NEGATIVE 03/01/22 03/01/22 03/01/22 11:31 15:37 15:45 WBC 10.99 H RBC 5.21 Hgb 15.3 Hct 44.9 MCV 86.2 MCH 29.4 MCHC 34.1 RDW Std Deviation 46.0 RDW Coeff of Tessa 14.6 H Plt Count 252 MPV 10.1 Immature Gran % (Auto) Neut % (Auto) Lymph % (Auto) [place] % (Auto) Eos % (Auto) Baso % (Auto) Neut # (Auto) Lymph # (Auto) [place] # (Auto) Eos # (Auto) Baso # (Auto) Immature Gran # (Auto) Sodium Potassium Chloride Carbon Dioxide Anion Gap BUN Creatinine Est Cr Clr Drug Dosing Est GFR ( Amer) Est GFR (Non-Af Amer) BUN/Creatinine Ratio Glucose Calcium Total Bilirubin AST ALT Alkaline Phosphatase Troponin I High Sens 15.5 C-Reactive Protein Total Protein Albumin Globulin Albumin/Globulin Ratio Lipase Procalcitonin Pending SARS-CoV-2, RNA, NAAT 03/01/22 15:45 WBC RBC Hgb Hct MCV MCH MCHC RDW Std Deviation RDW Coeff of Tessa Plt Count MPV Immature Gran % (Auto) Neut % (Auto) Lymph % (Auto) [place] % (Auto) Eos % (Auto) Baso % (Auto) Neut # (Auto) Lymph # (Auto) [place] # (Auto) Eos # (Auto) Baso # (Auto) Immature Gran # (Auto) Sodium Pending Potassium Pending Chloride Pending Carbon Dioxide Pending Anion Gap Pending BUN Pending Creatinine Pending Est Cr Clr Drug Dosing Pending Est GFR ( Amer) Pending Est GFR (Non-Af Amer) Pending BUN/Creatinine Ratio Pending Glucose Pending Calcium Pending Total Bilirubin AST ALT Alkaline Phosphatase Troponin I High Sens Pending C-Reactive Protein Pending Total Protein Albumin Globulin Albumin/Globulin Ratio Lipase Procalcitonin SARS-CoV-2, RNA, NAAT Diagnostic Findings Telemetry personally reviewed: Sinus rhythm. No arrhythmia. ECG personally reviewed from 02/28/2022 at 2242: Sinus rhythm 84 bpm. Labs reviewed. History and physical reviewed. EGD (Outside facility) report from 01/21/2022: Mild erosive gastritis. Chest x-ray image personally reviewed from 02/28/2022: No obvious infiltrate. No significant pleural effusion. Per radiology, no acute cardiopulmonary abnormality. Echo 03/01/22: 1. Normal left ventricular size and systolic function. EF 60-65%. No regional wall motion abnormalities. Moderate concentric left ventricular hypertrophy. 2. No significant valvular abnormalities visualized. 3. Mild pulmonary hypertension. Estimated RVSP 39 mmHg. 4. Technically difficult study, enhanced with IV Definity. 5. No prior study available for comparison. Medications Administered Current Inpatient Medications Acetaminophen (Acetaminophen 325 Mg Tab) 650 mg PO Q4H PRN PRN Reason: pain/fever Stop: 03/31/22 05:07 Al Hydrox/Mg Hydrox/Simethicone (Aluminum/Magnesium Susp 30 Ml Udc) 30 ml PO Q6H PRN PRN Reason: heart burn Stop: 03/31/22 05:07 Aspirin (Aspirin 81 Mg Ectab) 81 mg PO DAILY [facility] Stop: 03/31/22 08:59 Last Admin: 03/01/22 08:07 Dose: 81 mg Docusate Sodium (Docusate Sodium 100 Mg Cap) 100 mg PO BID PRN PRN Reason: Constipation Stop: 03/31/22 05:07 Lisinopril (Lisinopril 10 Mg Tab) 10 mg PO BID JHON Stop: 03/31/22 08:59 Last Admin: 03/01/22 08:07 Dose: 10 mg Morphine Sulfate (Morphine Sulfate 2 Mg/Ml Carp) 2 mg IV Q3H PRN PRN Reason: Pain (1,2,3,4,5) & Pre PT Stop: 03/15/22 05:07 Morphine Sulfate (Morphine Sulfate 4 Mg/Ml 1 Ml Carp\\Vial) 4 mg IV Q3H PRN PRN Reason: Pain (6,7,8,9,10) Stop: 03/15/22 05:07 Last Admin: 03/01/22 08:16 Dose: 4 mg Nitroglycerin (Nitroglycerin Sl 0.4 Mg/Tab Tab) 0.4 mg SL Q5M PRN PRN Reason: Chest Pain Stop: 03/31/22 05:07 Ondansetron HCl (Ondansetron Inj 2 Mg/Ml 2 Ml Vial) 4 mg IV Q6H PRN PRN Reason: Nausea Stop: 03/31/22 05:07 Pantoprazole Sodium (Pantoprazole 40 Mg Tab) 40 mg PO DAILY JHON Stop: 03/31/22 08:59 Last Admin: 03/01/22 08:07 Dose: 40 mg Polyethylene Glycol (Polyethylene (Miralax) 17 Gm Pack) 17 gm PO DAILY PRN PRN Reason: Constipation Stop: 03/31/22 05:07 PG Care Time/CCT Total # of Minutes Spent Total Time Spent with Patient: Total time spent is greater than 50% in coordination of care (as documented) at patient's floor/unit and/or counseling patient: Coding Level of Care Code INP/OBS CONSULT LVL 4, 60 MIN Diagnoses Chest pain R07.9 Hypertension I10 Bradycardia R00.1
[2022-03-01 16:26] LABS: Troponin I High Sensitivity 13.5 pg/ml (0-20)
[2022-03-01 16:46] LABS: BUN Creatinine Ratio 10.6 (10-20); C Reactive Protein 6.92 mg/dl (0-0.5); Creatinine Clr Calc Pharmacy 54.9 ml/min; Est GFR (Non-African American) 35.4 ml/min; Potassium 3.8 mmol/L (3.5-5.1)
--- NOTE | 2022-03-01 18:27 | Discharge Summary ---
Date of Service March 01, 2022 Admission HPI Per Admitting Provider Porter Westbrook is a 61yo male with history of HTN, CKD presenting with chest discomfort and left rib pain. Patient reports he was at home this evening touching up some paint on the sharp around 19:30 when he developed acute onset of burning pain in his left chest as well as increased belching and diaphoresis. He took some TUMS at home with minimal relief. Patient with similar pain in the past. He was recently at [facility] ER appx 1.5 months ago. Per history, was treated mostly for GI discomfort at that time. He did have an exercise stress test approximately 1 month ago that was unremarkable. No prior DC. No history of catheterization. He is active and denies exertional symptoms of dyspnea or chest pain. Patient presented to the ER, hypertensive, otherwise HD stable. He was given Fentanyl, ASA and Maalox in the ER with some improvement in substernal pain but is how having severe left sided pinching pain. He did fall today while throwing a ball at [facility]- landed more on his right side and back. ER Course: Maalox ASA Fentanyl Discharge Data Allergies Allergy/AdvReac Type Severity Reaction Status Date / Time pollen extracts Allergy Mild runny nose Verified 02/18/22 09:00 adhesive Allergy Unknown TORE SKIN Verified 02/18/22 09:00 OFF WITH TAPE Consultations 03/01/22 01:42 ED Decision to Admit Stat 03/01/22 08:33 Consult Cardiology Routine Ordered Studies 02/28/22 23:08 US GB [US gallbladder] Stat Hospital Course (1) Chest pain: 61yo male with history of HTN, CKD presenting with acute onset of substernal chest discomfort. Chest discomfort now resolved. Atypical. Negative stress test outpatient 1 month ago. Do not strongly suspect cardiac origin or ACS. Troponin did increase slightly. EKG with no acute ischemic changes -Telemetry monitoring -Trend Troponin -ASA 81mg po daily -Nitro PRN CP -Morphine PRN pain -Continue Protonix -Maalox PRN Left sided rib pain - etiology uncertain. Patient has had similar with negative workup. No direct trauma to the area. No bruising, crepitus or rash. Normal chest wall mechanics with inspiration/expiration. -Check rib series -Morphine ordered. (2) Chronic kidney disease, stage II (mild): BUN and Cr are near baseline -Avoid nephrotoxic agents -Renal dosing where needed (3) Hypertension: Elevated blood pressure in ER -Pain control with Morphine PRN -Continue Lisinopril 10mg po BID Discharge Plan Discharge Items Patient Disposition: Home - Self-Care Reason For Visit: CHEST PAIN Discharge Diagnosis: chest pain Activity: Resume your previous activity Non-emergency contact: Primary Care Provider Call non-emergency contact if: you have any medication questions Follow-up/Referrals: Fernando Pennington, [Primary Care Provider] - Diet: Low Fat Addtl Attending Provider Instructions: You were evaluated for chest pain, and the employee training specialist supervisor quality control ruled out a cardiac source. I will recommend you followup with your PCP and Dr. Cardenas to discuss if you need your gallbladder taken out. In the meantime, I would recommend a low fat diet. Pending Studies at Discharge: No Stand-Alone Forms: My [facility] [employer], Smoking Cessation Medications and DC Order Prescriptions: Continued ergocalciferol (vitamin D2) 1,250 mcg (50,000 unit) capsule 1,250 mcg PO .COMPLEX Qty: 12 0RF Rx Instructions: 1,250 mcg PO monthly as maintenance dosing; lisinopril 10 mg tablet 10 mg PO BID Qty: 90 3RF aspirin 81 mg tablet,delayed release (DR/EC) 81 mg PO DAILY pantoprazole [Protonix] 40 mg tablet,delayed release (DR/EC) 40 mg PO DAILY albuterol sulfate 90 mcg/actuation HFA aerosol inhaler 2 puff INHALATION .Q3HRS PRN (Reason: Cough) Discharge Orders: Discharge Order (Routine); Ordered 03/01/22 Ordered By: Vitaly Lomax Admission Data Admit Date/Time: 03/01/22 02:00 Attending Provider: Vitaly Lomax Admit Provider: Martine Martinez Primary Care Provider: Fernando Pennington Other Providers: Martine Martinez ; Maverick Vargas ; Dipesh Mclaughlin ; Gil Nur ; Samuel Washburn ; Jerrell Jimenez ; Nando Morgan Jr ; Carlitos Persaud ; Suzanne Espinoza ; Daniela Carl ; Musa Killian ; Alexx Nath ; Derrick Canas ; Tatum Heaton ; Uyen Purdy ; Olman Flaherty ; Juan Qureshi ; Fredis Yi ; Samuel Evans V. Coding Diagnoses Chest pain R07.9 Chronic kidney disease, stage II (mild) N18.2 Hypertension I10
--- NOTE | 2022-03-01 22:03 | Electrocardiogram Report ---
Test Reason : Blood Pressure : / mmHG Vent. Rate : 084 BPM Atrial Rate : 084 BPM P-R Int : 154 ms QRS Dur : 088 ms QT Int : 400 ms P-R-T Axes : 055 009 038 degrees QTc Int : 472 ms Poor data quality, interpretation may be adversely affected Normal sinus rhythm Nonspecific ST abnormality When compared with ECG of 03-DEC-2021 14:26, Borderline criteria for Anterior infarct are no longer Present Confirmed by Carlitos Persaud ([id number]) on 03/01/2022 10:03:29 PM Referred By: REFERRED SELF Confirmed By:Carlitos Persaud
== END 2022-03-01 19:00 | disposition home or self-care (01) ==
LOC: 2N 22:36 → ED 22:36 → SUATTDRO 03-01 02:00 → 2N 03-01 04:35

== ENCOUNTER 2022-03-22 09:31 | Observation (INO) ==
--- NOTE | 2022-03-15 12:08 | Anesthesiology Consultation ---
Date of Service March 15, 2022 Assessment & Plan (1) Encounter for pre-operative examination: Chart Review Chart Review: Acceptable Risk for Surgery and Patient NOT seen in Pre Admission Testing -COVID screening: Per PAT nursing assessment on 03/15/22. No known COVID-19 positive contacts or current COVID-19 related symptoms. Travel screen negative. Patient vaccinated for Covid. At surgeon discretion if preop Covid testing being done. Pt seen by cardio 03/09/22= Pt seen for evaluation of bradycardia prior to endoscopy in early Jan at [facility]. Pt has not had any lightheadedness, syncope or presyncope. Pt tries to do 10,000 steps/day. "Reported bradycardia events prior to endosocopy without symptoms." Stress test done 12/29/21- MPHR 92%. 10.1 METS achieved. ECHO from 03/01/22 reviewed. No bradycardiac on exam today. Will order 24 hour Holter monitor. Pt does snore and admits to apneic episodes with patient- will order home sleep study. Will also try to get BP under better control- amlodipine added to regiment. "He is set to have a cholecystectomy on Mar 22. Given that he can acheive at least 4 METS and that he did not have any inducible ischemia on stress test, he is low risk to proceed with his surgery." Follow up in one month. Pt admitted to [facility] 03/01/22 (discharged same day)= admitted for chest pain. Atypical. Resolved on discharge. Negative stress test one month ago. Chest pain is not consistent with ischemic heart disease- feels chest pain is epigastric. ( cardio consulted during admission). May need to follow up with removing gallbladder. Left sided rib pain- etiology uncertain. Work up negative. CKD stage II- labs near baseline. HTN- continue current meds. Open umbilical hernia repair with mesh 03/02/17= Done under [facility] with Grade 2 view (anterior). MAC #4. ETT #7.5. Atraumatic intubation History Surgery Operation Date: 03/22/22 08:35 Proposed Procedures p Laparoscopic Cholecystectomy - Derrick Cardenas MD, FACS Height/Weight Height: 6 ft 1 in Weight: 123.831 kg Allergies Allergy/AdvReac Type Severity Reaction Status Date / Time pollen extracts Allergy Mild runny nose Verified 03/15/22 09:47 adhesive Allergy Unknown TORE SKIN Verified 03/15/22 09:47 OFF WITH TAPE Medications Home Medications Medication Instructions Recorded Confirmed Last Taken ergocalciferol (vitamin D2) 1,250 1,250 mcg PO .COMPLEX #12 caps 08/11/21 03/15/22 Unknown mcg (50,000 unit) capsule lisinopril 10 mg tablet 10 mg PO BID #90 tabs 10/20/21 03/15/22 Unknown albuterol sulfate 90 mcg/actuation 2 puff inhalation .Q3HRS PRN Cough 12/03/21 03/15/22 Unknown aerosol inhaler pantoprazole 40 mg tablet,delayed 40 mg PO QAM 12/30/21 03/15/22 Unknown release (Protonix) amlodipine 5 mg tablet 5 mg PO QAM 03/15/22 03/15/22 Unknown Past Medical History Medical History BPH (benign prostatic hyperplasia) Bradycardia was told recently prior to endoscopy procedure that HR dropped into 30s on monitor. (@ [facility]) -- followed up with [facility] Cardio - Holter Monitor x 24 hrs approx 1 week ago -- results pending per pt Chronic kidney disease, stage II (mild) Follows with Dr. Dela Cruz GERD (gastroesophageal reflux disease) History of skin cancer removed History of TIA (transient ischemic attack) 2002 [place] (hard of hearing) Hypertension Past Family History Family History Mother Diabetes Other Adopted Past Surgical History Surgical History H/O colonoscopy (~2020) H/O hernia repair (03/02/17) Umbilical hernia repair H/O oral surgery History of esophagogastroduodenoscopy (EGD) History of wisdom tooth extraction Hx of appendectomy Hx of vasectomy Social History Smoking Status: Never smoker Do You Dip or Chew Tobacco: No Hx Alcohol Use: Yes Alcohol type: beer alcohol intake frequency: other Alcohol Intake Frequency Comment: 1 beer a month Hx Substance Use: No substance use type: does not use Lab Results Anesthesia Preop Results Results Anesthesia Widget: WBC 10.99 K/ul (4.8-10.8) H 03/01/22 Hgb 15.3 g/dl (14.0-18.0) 03/01/22 Hct 44.9 % (40.1-51.0) 03/01/22 Plt 252 K/uL (130-400) 03/01/22 Na 137 mmol/L (136-145) 03/01/22 K 3.8 mmol/L (3.5-5.1) 03/01/22 Cl 105 mmol/L (98-107) 03/01/22 CO2 24 mmol/L (21-32) 03/01/22 BUN 21 mg/dl (6-23) 03/01/22 Creat 1.98 mg/dl (0.6-1.4) H 03/01/22 Glucose Level 120 mg/dl (70-99(Fasting)) H 03/01/22 Urine Color Yellow 01/26/22 Urine Appearance Clear (Clear) 01/26/22 Urine pH 5.5 (4.5-7.5) 01/26/22 Urine Specific [place] 1.013 (1.000-1.030) 01/26/22 Urine Protein 3+ (Negative) H 01/26/22 Urine Glucose (UA) Negative (Negative) 01/26/22 Urine Ketones Negative (Negative) 01/26/22 Urine Blood 1+ (Negative) H 01/26/22 Urine Nitrite Negative (Negative) 01/26/22 Urine Bilirubin Negative (Negative) 01/26/22 Urine Urobilinogen Negative (Negative) 01/26/22 Urine Leukocyte Esterase Negative (Negative) 01/26/22 Urine WBC (Auto) 1-5 /hpf (0-5) 01/26/22 Urine RBC (Auto) 5-10 /hpf (0-4) H 01/26/22 Urine Hyaline Casts (Auto) 1-5 /lpf (0-5) 01/26/22 Urine Epithelial Cells (Auto) 0-5 /lpf (0-5) 01/26/22 Urine Bacteria (Auto) Negative (Negative) 01/26/22 SARS-CoV-2, RNA, NAAT NEGATIVE (NEGATIVE) 03/01/22 Testing Laboratory Results Elevated creatinine - chronic and stable (baseline creatinine 1.7-2.0 per nephro note 02/2022) Electrocardiogram Date: 02/28/22 Poor data quality NSR at 84bpm Nonspecific ST abnormality Chest X-Ray Date: 02/28/22 Findings: + NAD Echocardiogram Date: 03/01/22 EF: 60-65% LV Function: normal RWMA: + none Other Findings: + LVH (moderate/concentric ) and + diastolic dysfunction (Type I ) Valvular Disease: + no significant valvular disease Mild pulm HTN- estimated RVSP 39mmHg Stress Test Date: 12/29/21 Type: exercise (ECHO) Stress EKG negative for ischemia at 92%. Stress ECHO negative for new wall motion abnormality at 92% MPHR. 10.1 METS achieved Stress ECHO Shows normal improvement in the LVEF with stress
[~2022-03-22 09:31] MED LIST changes: -HYDR-5688 PO; -IBUP-1050 PO; -LISI-461 PO; +LR 15ML/HR IV SCH; +cefUROXime 1,500 MG in DEXTROSE 5% 100 ML IV ONE
[2022-03-22] MEDS ORDERED: ONDANSETRON INJ 2 MG/ML 2 ML VIAL IV PRN ×2 (11:47→15:54)
[2022-03-22] MEDS ORDERED: ePHEDrine sulfate 50 MG/ML AMP IV PRN (11:47)
[2022-03-22] MEDS ORDERED: ATROPINE SULFATE 0.1 MG/ML 10ML SYR IV PRN (11:47)
[2022-03-22] MEDS ORDERED: LABETALOL HCL IV 5 MG/ML 20ML IV PRN (11:47)
[2022-03-22] MEDS ORDERED: NALOXONE HCL 0.4 MG/1 ML VIAL/CARP IV PRN (11:47)
[2022-03-22] MEDS ORDERED: PROMETHAZINE HCL 12.5 MG in SODIUM CHLORIDE 0.9% 50 ML IV PRN (11:47)
[2022-03-22] MEDS ORDERED: MIDAZOLAM HCL 1 MG/ML 2ML VIAL ONE (11:47)
[2022-03-22] MEDS ORDERED: fentaNYL citrate 100 MCG/2 ML VIAL ONE ×2 (11:47→13:17)
[2022-03-22] MEDS ORDERED: FLUMAZENIL 0.1 MG/1 ML 10 ML VIAL IV PRN (11:47)
[2022-03-22] MEDS ORDERED: DEXAMETHASONE SOD INJ 4 MG/ML VIAL ONE (12:17)
[2022-03-22] MEDS ORDERED: ROCURONIUM BROMIDE 10 MG/ML 5 ML VIAL IV ONE ×2 (12:18→13:03)
[2022-03-22] MEDS ORDERED: PROPOFOL IV EMULSION 10 MG/ML 20 ML VIAL IV ONE (12:18)
[2022-03-22] MEDS ORDERED: ONDANSETRON INJ 2 MG/ML 2 ML VIAL ONE (12:18)
[2022-03-22] MEDS ORDERED: LIDOCAINE 2% MPF LOCAL 5 ML VIAL INFIL ONE (12:18)
[2022-03-22] MEDS ORDERED: ACETAMINOPHEN 1000 MG/100 ML IV IV ONE (12:19)
[2022-03-22] MEDS ORDERED: BUPIVACAINE 0.5 % 5 MG/1 ML MPF 30ML VIAL ONE (12:20)
--- NOTE | 2022-03-22 12:37 | History & Physical Bridge Note ---
Date of Service March 22, 2022 History & Physical Bridge Note I have examined the patient, reviewed the History & Physical and in the interval since the performance of the History & Physical I have noted the following changes of clinical significance: no changes noted
[2022-03-22] MEDS ORDERED: PHENYLEPHRINE 100MCG/ML 5ML SYR ONE (13:03)
[2022-03-22] MEDS ORDERED: SUCCINYLCHOLINE 100MG/5ML SYR IV ONE (13:53)
[2022-03-22] MEDS ORDERED: GLYCOPYRROLATE 0.2 MG/ML VIAL ONE (13:54)
[2022-03-22] MEDS ORDERED: NEOSTIGMINE METHYLSULFATE 1 MG/ML 10ML VIAL ONE (13:54)
--- NOTE | 2022-03-22 14:06 | Post Operative Brief Note ---
PG Immediate Post Op with CF Date of Surgery March 22, 2022 Pre & Post Diagnosis Operation Date: 03/22/22 11:20 Pre-Op Diagnosis: Cholelithiasis Post-Op Diagnosis: Cholelithiasis , severe acute and chronic necrotizing cholecystitis I identified the patient and participated in the time-out.: Yes Procedure Operation Date: 03/22/22 11:20 Actual Procedures p Laparoscopic Cholecystectomy(Not Applicable) - Derrick Cardenas MD, FACS Very difficult secondary to acute and chronic inflammation at difficulty modifier Surgeon Derrick Cardenas MD, FACS Environmental Advisor Nathan Mcbride Estimated Blood Loss 10 Findings Consistent with Post-Op Diagnosis Patient with adhesions and severe acute and chronic cholecystitis with necrotizing cholecystitis Specimens Specimen Description: A. gallbladder Drains Sabas-Erwin Drain (15 khmer round julio césar inserted by Doctor Cardenas during procedure )
[2022-03-22] MEDS ORDERED: ACETAMINOPHEN 1,000 MG/100 ML VIAL IV ONE (14:09)
[2022-03-22] MEDS: fentaNYL citrate 100 MCG/2 ML VIAL IV PRN ×3 (14:23→14:35)
[2022-03-22] MEDS ORDERED: HYDROmorphone INJ 1 MG/ML SYRINGE ONE (14:49)
[2022-03-22] MEDS: HYDROmorphone INJ 0.5 MG/0.5 ML SYR IV PRN ×4 (14:50→15:08)
--- NOTE | 2022-03-22 15:20 | Anesthesiology Progress Note ---
Date of Service March 22, 2022 Anesthesia Post Procedure Vital Signs Vital Signs: Temp Pulse Pulse Resp BP Pulse Ox O2 Del Method 03/22/22 15:10 58 L 15 129/72 95 Nasal Cannula 03/22/22 15:00 66 14 132/77 93 Room Air 03/22/22 14:50 85 18 146/82 H 92 Room Air 03/22/22 14:40 79 17 153/84 H 99 Oxymask 03/22/22 14:30 84 12 149/78 H 99 Oxymask 03/22/22 14:20 84 15 145/78 H 98 Oxymask 03/22/22 14:14 36.0 C L 85 20 144/80 H 97 Oxymask 03/22/22 10:11 36.8 C 65 18 142/79 H 97 Room Air O2 Flow Rate 03/22/22 15:10 2 03/22/22 15:00 03/22/22 14:50 03/22/22 14:40 5 03/22/22 14:30 5 03/22/22 14:20 5 03/22/22 14:14 5 03/22/22 10:11 Pain Intensity Right Abdomen: Pain Intensity: 2 Transfer of Care Handoff Completed per policy Notes Mental Status: alert / awake / arousable Patient Amnestic to Procedure: Yes Nausea / Vomiting: adequately controlled Pain: adequately controlled Airway Patency, RR, SpO2: stable & adequate BP & HR: stable & adequate Hydration State: stable & adequate Anesthetic Complications: no major complications apparent
[2022-03-22] MEDS ORDERED: LACTATED RINGER'S 1,000 ML IV SCH (15:54)
[2022-03-22] MEDS ORDERED: ACETAMINOPHEN 325 MG TAB PO PRN (15:54)
[2022-03-22] MEDS ORDERED: HYDROmorphone INJ 0.5 MG/0.5 ML SYR IV PRN ×2 (15:54)
[2022-03-22] MEDS ORDERED: ALBUTEROL HFA 8 GM INHALER INH PRN (15:54)
--- NOTE | 2022-03-22 16:04 | Operative Report (OR) ---
DATE OF OPERATION: 03/22/2022. NAME OF OPERATION: Laparoscopic cholecystectomy. PREOPERATIVE DIAGNOSIS: Cholelithiasis. POSTOPERATIVE DIAGNOSES: Cholelithiasis with acute and chronic necrotizing cholecystitis. STAFF SURGEON: Derrick Cardenas MD. COMMISSIONED SECURITY OFFICER: Adriana Mcbride PA-C. ANESTHESIA: General. DESCRIPTION OF PROCEDURE: The patient was brought in the operating room and placed on the operating table in supine position. His abdomen was prepped and draped in the usual fashion. A 0.5% Marcaine was used to anesthetize all incisions. Incision was made above the umbilicus, carrying dissection do wn to the fascia, placing a Veress needle producing pneumoperitoneum. Three 5 mm ports were placed, one cephalad and two laterally under visualization. The gallbladder was severely inflamed with adhes ions consistent with both acute and chronic inflammation. I was unable to aspirate bile or grasp the gallbladder well because of the thickness and inflammation. I was also unable to visualize the port a hepatis well, so I had to put in a fourth 5 mm port for a retractor. Gradually, I was able to diss ect into the jillian hepatis and identify the cystic duct and cystic artery. These were clipped and tr ansected. The cystic artery appeared to be necrotic. It was tierney, pale in appearance, appeared to be gangrenous, full of sludge, completely occluded. At this point, the gallbladder was dissected away from the liver bed showing severe inflammation. It was placed in an Endobag as well as some stones, placed in an Endobag. The subhepatic space was irrigated. A 15 round Sabas-Erwin drain placed thr ough a lateral 5 mm port site into the subhepatic space, secured using 3-0 nylon suture. A 5 mm came ra was used to remove the bag through the umbilical site. I did have to enlarge the fascial incision , because of the inflammation of the gallbladder. Fascia at the umbilicus closed using interrupted 0 PDS suture. The skin was reapproximated using 4-0 nylon suture. My parts room assistant helped with prepping, draping, removal of gallbladder and closure of the wound. This was a very difficult case and should have a difficulty modifier applied. Job ID: [id number]
[2022-03-22] MEDS: oxyCODONE HCL IR 5 MG TAB (IMMEDIATE RELEASE) PO PRN (20:41)
[2022-03-22] MEDS: DOCUSATE SODIUM/SENNA 50/8.6MG TAB PO SCH (20:42)
[2022-03-22] MEDS: lisinopril 10 MG TAB PO SCH (20:42)
[2022-03-23] MEDS: oxyCODONE HCL IR 5 MG TAB (IMMEDIATE RELEASE) PO PRN ×3 (00:35→21:06)
--- NOTE | 2022-03-23 08:00 | Discharge Summary (DS) ---
DATE OF ADMISSION: 03/22/2022. DATE OF DISCHARGE: 03/23/2022. PRINCIPAL DIAGNOSIS: Severe acute and chronic necrotizing cholecystitis. PROCEDURE: The patient underwent laparoscopic cholecystectomy. HISTORY OF PRESENT ILLNESS: The patient is a 61-year-old male who has been having significant upper abdominal pain, chest pain, brought in the hospital for elective cholecystectomy. He was taken to [facility] operating room on 03/22/2022, where he underwent laparoscopic cholecystectomy, which was very diffi cult secondary to severe acute and chronic necrotizing cholecystitis and also difficulty exposing his gallbladder secondary to adipose tissue. The patient did actually require an additional port. The patient did tolerate the procedure relatively well. I did place a drain. He had pain postoperativel y, but has progressed overnight and is felt stable for discharge home with the drain today to be foll owed in the surgical clinic early next week. Job ID: [id number]
[2022-03-23 08:29] LABS: Basophils # (auto) 0.03 K/uL (0-0.2); Basophils % (auto) 0.2 %; Eosinophils # (auto) 0.01 K/uL (0-0.50); Eosinophils % (auto) 0.1 %; Hematocrit (blood only) 40.9 % (42.0-52.0); Hemoglobin 13.6 g/dl (14.0-18.0); Immature Granulocytes # (auto) 0.06 K/uL (0.01-0.20); Immature Granulocytes % (auto) 0.4 %; Lymphocytes % (auto) 10.2 %; Mean Corpuscular Hemoglobin 29.2 pg (25.0-34.0); Mean Corpuscular Hgb Conc 33.3 g/dL (32.0-36.0); Mean Platelet Volume 9.8 fL (9.4-12.4); Monocytes # (auto) 1.23 K/uL (0.11-0.59); Monocytes % (auto) 8.4 %; Neutrophils # (auto) 11.88 K/uL (1.40-6.50); Neutrophils % (auto) 80.7 %; Platelet Count 283 K/uL (130-400); RDW Coefficient of Variation 14.2 % (11.5-14.5); RDW Standard Deviation 46.5 fL (36.4-46.3); Red Blood Count 4.65 M/uL (4.70-6.10); White Blood Count 14.71 K/ul (4.8-10.8)
[2022-03-23 08:44] LABS: Albumin Globulin Ratio 1.1 (0.9-2); Albumin Level 3.7 gm/dl (3.4-5.0); BUN Creatinine Ratio 11.1 (10-20); Bilirubin Direct 0.1 mg/dl (0-0.2); Bilirubin,Total 0.7 mg/dl (0.2-1.0); Calcium 9.7 mg/dl (8.5-10.1); Creatinine Clr Calc Pharmacy 47.6 ml/min; Est GFR (Non-African American) 30.2 ml/min; Globulin 3.5 gm/dl (2.5-4.0); Potassium 4.1 mmol/L (3.5-5.1); Total Protein 7.2 gm/dl (6.0-8.3)
[2022-03-23] MEDS: DOCUSATE SODIUM/SENNA 50/8.6MG TAB PO SCH ×2 (08:59→21:04)
--- NOTE | 2022-03-23 10:49 | Hospitalist Consultation ---
Date of Consultation March 23, 2022 Assessment & Plan (1) Status post laparoscopic cholecystectomy: POD#1 - Pain control, diet, periop abx, ANANYA drain management per primary service - Of note, mild leukocytosis likely reactive from surgery (2) Hypoxia: - Likely multifactorial- anesthesia, narcotics, and undiagnosed ANKIT - Pt had witnessed apnea during his stress test procedure - Will need referral for sleep study which can be arranged by PCP - Check CXR - Continue I/S use every 1-2 hours while awake - Wean O2 as able to keep sats >90% (3) BPH (benign prostatic hyperplasia): - If unable to spontaneously void, bladder scan and straight cath for residual >300 cc - Consider f/u with urology as outpatient (4) Chronic kidney disease, stage II (mild): - Baseline creatinine appears 2.0-2.4 - Within baseline, f/u with Dr. Dela Cruz as outpatient (5) Hypertension: - BP well controlled - Resume Lisinopril & Amlodipine Plan Thank you for allowing us to participate in the care of your patient. Will make additional recommendations based on the results of the CXR. Above plan of care to be d/w Dr. Johnson who will also see and evaluate the patient. History of Present Illness Reason for Consultation: Medical management Requesting Physician: Dr. Cardenas Attending Physician: Derrick Cardenas MD, [facility] History of Present Illness Mr. Westbrook is a 61 yo obese WM who was admitted to Dr. Cardenas's service for elective laparoscopic cholecystectomy due to cholelithiasis and biliary colic. He was taken to the OR on 2, received general anesthesia. Dr. Cardenas indicated that the procedure was very difficult due to acute and chronic inflammation. This morning, pod#1, patient attempted to get out of bed and go for a walk and felt dizzy/lightheaded and nauseous. He did not lose consciousness. He is currently requiring 2L of oxygen due to oxygen saturation dropping to 88% on room air this morning. At present, the patient is resting comfortably in bed. Reports no complaints. Was attempting to void in the urinal but having some difficulty with this. He does have a h/o bph and has been seen by urology in the past with medications being attempted but unsuccessful. He was seen by cardiology recently for cardiac clearance prior to his surgery. Underwent stress test, was found to have occasional PVCs, resting echo showed an EF of 55% witho ut WMA. Mild pulmonary HTN noted on his 2d echo from 03/01/22 with an RVSP of 39 mmHg. No valvular abnormalities. Pt did have witnessed apnea with sleep but carries no documented h/o ANKIT. His pain in primarily with movement in his RUQ/right-sided ribs. Denies cough, dyspnea, fever/chills, chest pain, v/d. Allergies Allergy/AdvReac Type Severity Reaction Status Date / Time pollen extracts Allergy Mild runny nose Verified 03/22/22 10:07 adhesive Allergy Unknown TORE SKIN Verified 03/22/22 10:07 OFF WITH TAPE Home Medications Medication Instructions Recorded Confirmed Type ergocalciferol (vitamin D2) 1,250 1,250 mcg PO .COMPLEX #12 caps 08/11/21 0 03/22/22 Rx mcg (50,000 unit) capsule lisinopril 10 mg tablet 10 mg PO BID #90 tabs 10/20/21 03/22/22 Rx albuterol sulfate 90 mcg/actuation 2 puff inhalation .Q3HRS PRN Cough 12/03/21 03/22/22 History aerosol inhaler pantoprazole 40 mg tablet,delayed 40 mg PO QAM 12/30/21 03/22/22 History release (Protonix) amlodipine 5 mg tablet 5 mg PO QAM 03/15/22 03/22/22 History amoxicillin 875 mg-potassium 1 tab PO BID #10 tabs 03/23/22 Rx clavulanate 125 mg tablet oxycodone 5 mg tablet 5 - 10 mg PO Q6H PRN pain #30 tabs 03/23/22 Rx Patient History Medical History BPH (benign prostatic hyperplasia) Bradycardia was told recently prior to endoscopy procedure that HR dropped into [facility] with [facility] Cardio - Holter Monitor x 24 hrs approx 1 week ago -- results pending per pt Chronic kidney disease, stage II (mild) Follows with Dr. Dela Cruz GERD (gastroesophageal reflux disease) History of skin cancer removed History of TIA (transient ischemic attack) 2002 [place] (hard of hearing) Hypertension Surgical History H/O colonoscopy (~2020) H/O hernia repair (03/02/17) Umbilical hernia repair H/O oral surgery History of esophagogastroduodenoscopy (EGD) History of wisdom tooth extraction Hx of appendectomy Hx of vasectomy Family History Mother Diabetes Other Adopted Social History Smoking Status: Never smoker Second Hand Exposure: No; Do You Dip or Chew Tobacco: No; Hx Alcohol Use: Yes Alcohol type: beer Hx Substance Use: No Preferred Language: Yakut Communication Ability: Effective Dumper Operator Required: No Beliefs That Will Affect Care: None marital status: Current Living Situation: Spouse current occupational status: employed and retired current occupation: [employer] How many Children do You have: 2 Feels Safe at Home: Yes Safety Concerns: Feels Safe At This Time during the past year weight has: remained stable Assistive Devices: None Review of Systems Review of Systems: All systems reviewed and are unremarkable except as noted in HPI and below. Denies fever, chills, fatigue, headache, nasal congestion, sore throat, cough, chest pain, shortness of breath, palpitations, orthopnea, PND, v/d, constipation, dysuria, hematuria, frequency, back pain, joint pain or swelling, easy bruising or bleeding, skin lesions or rashes. Physical Exam Physical Exam: GENERAL: 61 yo obese well-developed wm, NAD. EYES: EOMI. PERRLA. Anicteric. HENT: Moist mucous membranes. No scleral icterus. No cervical lymphadenopathy. LUNGS: Clear to auscultation bilaterally. No accessory muscle use. No W/R/R. CARDIOVASCULAR: Regular rate and rhythm. No M/G/R. No JVD. ABDOMEN: Soft, obese, tenderness to palp in RUQ. ANANYA drain visualized. BS normoactive x 4 quad. EXTREMITIES: Trace edema. Non-tender. Peripheral pulses +2/4. NEUROLOGIC: A&O x3. No focal neurological deficits. CN II-XII grossly intact. PSYCHIATRIC: Cooperative. Appropriate mood and affect. SKIN: Warm, dry, intact. No rashes or lesions. Results & Data Results & Data ([facility]) Vital Signs (Past 12 Hours) Vital Signs Temp Pulse Resp BP Pulse Ox O2 Del Method O2 Flow Rate 03/23/22 09:39 78 18 130/76 95 Nasal Cannula 2 03/23/22 08:50 76 18 98/61 L 88 L Room Air 03/23/22 07:50 Room Air 03/23/22 07:44 36.6 C 84 18 148/84 H 91 Room Air 03/23/22 04:29 36.6 C 72 18 143/86 H 92 Room Air Laboratory Results 03/23/22 08:10 03/23/22 08:10 PG Care Time/CCT Total # of Minutes Spent Total Time Spent with Patient: Total time spent is greater than 50% in coordination of care (as documented) at patient's floor/unit and/or counseling patient: Coding Level of Care Code INP/OBS CONSULT LVL 4, 60 MIN Diagnoses Status post laparoscopic cholecystectomy Z90.49 Hypoxia R09.02 BPH (benign prostatic hyperplasia) N40.0 Chronic kidney disease, stage II (mild) N18.2 Hypertension I10
--- NOTE | 2022-03-23 11:57 | XRay Report ---
XR chest 1V portable HISTORY: hypoxia COMPARISON: Chest x-ray 02/28/2022. FINDINGS: There are low lung volumes. The heart is enlarged. No pneumothorax. No pleural effusions. B ibasilar linear densities are noted. There is mild central pulmonary vascular congestion without ove rt edema. IMPRESSION: 1. Low lung volumes with bibasilar linear densities. These favor subsegmental atelectasis. A pneumoni a could also have a similar appearance. 2. Mild cardiomegaly with mild central pulmonary vascular congestion. ACT 112: Negative or not required by law. Electronically signed by: Joseph Delvalle M.D. 03/23/2022 11:55 AM
[2022-03-23] MEDS ORDERED: FUROSEMIDE INJ 20 MG/2 ML VIAL IV ONE ×2 (12:00→12:04)
[2022-03-23] MEDS: lisinopril 10 MG TAB PO SCH ×2 (12:07→21:03)
[2022-03-23] MEDS: amLODIPine BESYLATE 5 MG TAB PO SCH (12:07)
[2022-03-24 07:16] LABS: Basophils # (auto) 0.05 K/uL (0-0.2); Basophils % (auto) 0.4 %; Eosinophils # (auto) 0.12 K/uL (0-0.50); Hematocrit (blood only) 40.8 % (42.0-52.0); Hemoglobin 13.8 g/dl (14.0-18.0); Immature Granulocytes # (auto) 0.05 K/uL (0.01-0.20); Immature Granulocytes % (auto) 0.4 %; Lymphocytes # (auto) 1.66 K/uL (1.2-3.4); Lymphocytes % (auto) 13.4 %; Mean Corpuscular Hemoglobin 29.4 pg (25.0-34.0); Mean Corpuscular Hgb Conc 33.8 g/dL (32.0-36.0); Mean Corpuscular Volume 86.8 fL (80.0-100.0); Mean Platelet Volume 9.4 fL (9.4-12.4); Monocytes # (auto) 1.34 K/uL (0.11-0.59); Monocytes % (auto) 10.9 %; Neutrophils # (auto) 9.13 K/uL (1.40-6.50); Neutrophils % (auto) 73.9 %; Platelet Count 276 K/uL (130-400); RDW Coefficient of Variation 14.4 % (11.5-14.5); RDW Standard Deviation 46.2 fL (36.4-46.3); White Blood Count 12.35 K/ul (4.8-10.8)
--- NOTE | 2022-03-24 07:20 | Surgery Progress Note ---
Date of Service March 24, 2022 Assessment & Plan (1) Status post laparoscopic cholecystectomy: Plan: Patient has drain in place as the operation was very difficult secondary to severe acute and chronic disease He had an episode yesterday of lightheadedness and hypotension He seems to have improved and is now walking in the hallway He said he is passing flatus today He does have relatively good bowel sounds Plan for discharge home today-p.o. pain medication and antibiotics Also instructions written for Senokot-S and milk of magnesia Leave drain Admission and Anticipated Discharge Date Admission Date: March 22, 2022 PG Care Time/CCT Total # of Minutes Spent Total Time Spent with Patient: Total time spent is greater than 50% in coordination of care (as documented) at patient's floor/unit and/or counseling patient: Coding Level of Care Code 96097 Post Operative Follow-Up Diagnoses Status post laparoscopic cholecystectomy Z90.49
[2022-03-24 07:36] LABS: Albumin Globulin Ratio 1.1 (0.9-2); Albumin Level 3.7 gm/dl (3.4-5.0); BUN Creatinine Ratio 10.5 (10-20); Bilirubin Direct 0.2 mg/dl (0-0.2); Bilirubin,Total 0.8 mg/dl (0.2-1.0); Calcium 9.9 mg/dl (8.5-10.1); Creatinine Clr Calc Pharmacy 43.6 ml/min; Est GFR (African American) 31.4 ml/min; Est GFR (Non-African American) 27.1 ml/min; Globulin 3.4 gm/dl (2.5-4.0); Magnesium 1.9 mg/dl (1.7-2.4); Phosphorus 2.9 mg/dl (2.5-4.9); Potassium 3.9 mmol/L (3.5-5.1); Total Protein 7.1 gm/dl (6.0-8.3)
--- NOTE | 2022-03-24 08:35 | Hospitalist Progress Note ---
Date of Service March 24, 2022 Assessment & Plan (1) Status post laparoscopic cholecystectomy: Plan: POD#2 - Pain control, diet, periop abx, ANANYA drain management per primary service - Of note, mild leukocytosis likely reactive from surgery Patient seen by hospitalist service 03/23, note indicate hypovolemia but patient was given 20mg IV lasix last evening Will have patient hold his lisinopril for this morning, push oral fluids. Would suspect ok to resume in AM / as long as oral intake ok. Will check set orthostatic VS prior to d/c (2) Hypoxia: Plan: - Likely multifactorial- anesthesia, narcotics, and undiagnosed ANKIT - Pt had witnessed apnea during his stress test procedure - Will need referral for sleep study which can be arranged by PCP - Check CXR - Continue I/S use every 1-2 hours while awake - Wean O2 as able to keep sats >90% (3) BPH (benign prostatic hyperplasia): Plan: - If unable to spontaneously void, bladder scan and straight cath for residual >300 cc - Consider f/u with urology as outpatient (4) Chronic kidney disease, stage II (mild): Plan: - Baseline creatinine appears 2.0-2.4 - Within baseline, f/u with Dr. Dela Cruz as outpatient (5) Hypertension: Plan: - BP well controlled - Resume Lisinopril & Amlodipine Plan Thank you for allowing us to participate in the care of your patient. Will make additional recommendations based on the results of the CXR. Above plan of care to be d/w Dr. Johnson who will also see and evaluate the patient. Admission and Anticipated Discharge Date Admission Date: March 22, 2022 Results & Data Results & Data ([facility]) Vital Signs (Past 12 Hours) Vital Signs Temp Pulse Resp BP Pulse Ox O2 Del Method 03/24/22 07:28 36.8 C 97 H 18 133/76 95 Room Air PG Care Time/CCT Total # of Minutes Spent Total Time Spent with Patient: Total time spent is greater than 50% in coordination of care (as documented) at patient's floor/unit and/or counseling patient: Coding Diagnoses Status post laparoscopic cholecystectomy Z90.49 Hypoxia R09.02 BPH (benign prostatic hyperplasia) N40.0 Chronic kidney disease, stage II (mild) N18.2 Hypertension I10
[2022-03-24] MEDS: amLODIPine BESYLATE 5 MG TAB PO SCH (09:04)
[2022-03-24] MEDS: DOCUSATE SODIUM/SENNA 50/8.6MG TAB PO SCH (09:04)
--- NOTE | 2022-03-24 09:38 | Communication Note ---
Date of Service: March 24, 2022 Saw patient this morning to touch base about medications. Given lasix 20mg IV for pulm congestion, however had not been using incentive spirometer/out of bed. Continues on lisinopril 10mg BID, Cr 2.47 (baseline 2-2.4, follows with Dr Dela Cruz) Patient states was told possible d/c lisinopril in future -- discussed on amlodipine 5mg daily and can discuss in f/u titrations w/ nephro and PCP. No further lightheadedness/dizziness, ambulating the halls this morning. ANANYA output slowed but remaining in place for week. Instructed to hold this evening lisinopril and can resume tomorrow morning. His main question is whether or not Dr Cardenas will be continuing antibiotics given his gangrenous gallbladder. Discussed will message Dr Cardenas and let nursing know if he wants abx continued at discharge.
== END 2022-03-24 11:58 | disposition home or self-care (01) ==
LOC: ASU 09:31 → 3N 14:08 → INTOOBSV 14:08

== ENCOUNTER 2024-02-09 11:06 | Observation (INO) ==
[2024-02-09 11:18] VITALS: TEMP 98.1
--- NOTE | 2024-02-09 11:30 | Emergency Department Note ---
Impression & Plan TIA (transient ischemic attack), HTN (hypertension), CKD (chronic kidney disease) ED Provider Note NAME: NERISSA RICHARDSON AGE: 63 SEX: M : 1960 ARRIVES VIA: Walk-In INFORMANT: Patient ED PROVIDER(S): Sorin Millan DO CHIEF COMPLAINT: Slurred speech, dizzy neck pain HPI: Patient is a 63-year-old male with a past medical history of hypoxia, chest pain, BPH and hypertension who presents to the ER for slurred speech which started [place]. He was dizzy as well and the thinks that she has noticed some left-sided facial droop. She saw the PCP and was referred in. Patient denies any head pain and but admits to pain on his bilateral neck on palpation and rotation which been present for the past 3 weeks. No chest pain or shortness of breath. No belly pain. No weakness or numbness in the arms or legs. No other exacerbating or remitting factors. ADDITIONAL HISTORY OBTAINED: Per HPI Chronic Medical/Social Conditions Affecting Care: Per HPI PAST MEDICAL HISTORY:See Below PAST SURGICAL HISTORY:See Below FAMILY HISTORY:See Below SOCIAL HISTORY:See Below HOME MEDICATIONS:See Below ALLERGIES:See Below VITALS:See Below PHYSICAL EXAMINATION: GENERAL: Sitting up in bed, alert, well appearing, well nourished, no distress, non-toxic EYE EXAM: normal conjunctiva. OROPHARYNX: no exudate, no erythema, lips, buccal mucosa, and tongue normal and mucous membranes are moist NECK: supple, no nuchal rigidity, no adenopathy, non-tender LUNGS: Clear to auscultation. Normal chest wall mechanics HEART: no murmurs, S1 normal and S2 normal ABDOMEN: abdomen soft, non-tender, normo-active bowel sounds, no masses, no rebound or guarding. BACK: Back is symmetrical on inspection and there is no deformity, no midline tenderness, no CVA tenderness. SKIN: no rashes and no bruising UPPER EXTREMITIES: upper extremities are grossly normal. LOWER EXTREMITIES: No pitting edema. NEURO EXAM: Normal sensorium, cranial nerves II-XII intact, normal speech, no weakness of arms, no weakness of legs. No drift. Finger to nose intact. Gross sensation intact. MEDICAL DECISION MAKING: Patient is a 63-year-old male who presents ER for the above-stated complaint. IV was established blood work was obtained. Labs show no significant leukocytosis or anemia. INR unremarkable. BMP with a creatinine of 2 fairly consistent with previous. LFTs bilirubin and troponin was negative. Mag was unremarkable. CT of the head as well as angios of the head and neck were unremarkable. Case was discussed with [facility] Dr. Santiago who evaluate the patient. He recommended Plavix aspirin and admission for complete stroke workup. Consults/Care Managements Discussions: Per [facility] Triage Nursing notes reviewed. Limited review of prior medical records performed Vital Signs: reviewed and remarkable for HTN Differential diagnosis: Differential Diagnosis includes but is not limited to ischemic Stroke, hemorrhagic stroke, bells palsy, mass, neoplasm, migraine headache, seizure, subarachnoid hemorrhage, TIA, and transient global amnesia. ER treatment provided: See below Diagnostics interpreted by me include EKG and cardiac monitoring as listed below: -Cardiac Monitoring: An order was placed for continuous cardiac monitoring. The monitor shows a rate of 55 with sinus rhythm. -ECG: Sinus rhythm rate of 53 Normal axis No PVCs QTc 401 -Laboratory studies:Interpreted by me as stated above in MDM and shown below. Imaging studies: Xrays: As interpreted by me:none CTs show: CT of the head per my preliminary interpretation showed no obvious large bleed CT angios of the head and neck as well as Noncon of the head were negative per radiology Procedures:none Critical Care: None Past Med/Surg History Problem List (Updated 02/09/24 @ 14:25 by Sorin Millan DO) CKD (chronic kidney disease) (Acute) HTN (hypertension) (Acute) TIA (transient ischemic attack) (Acute) BPH loc w urin obs/LUTS Obesity Hx laparoscopic cholecystectomy (03/22/22) Laparoscopic cholecystectomy. Dr. Cardenas Status post laparoscopic cholecystectomy Hypoxia Status post laparoscopic cholecystectomy BPH (benign prostatic hyperplasia) Other microscopic hematuria (Acute) Cholelithiasis (Acute) Chest pain (Acute) Bradycardia Chronic kidney disease, stage II (mild) Follows with Dr. Dela Cruz Hypertension Vitamin D deficiency Medical History Encounter for pre-operative examination BPH (benign prostatic hyperplasia) GERD (gastroesophageal reflux disease) History of skin cancer [place] (hard of hearing) History of TIA (transient ischemic attack) Bradycardia Surgical History History of wisdom tooth extraction History of esophagogastroduodenoscopy (EGD) H/O colonoscopy (~2020) H/O hernia repair (03/02/17) Hx of appendectomy Hx of vasectomy H/O oral surgery Family History Mother Diabetes Other Adopted Social History Smoking Status: Never smoker Second Hand Exposure: No; Do You Dip or Chew Tobacco: No; Hx Alcohol Use: Yes Alcohol type: beer Hx Substance Use: No Preferred Language: Cook Islander Communication Ability: Effective Visual Impairment: No Limitations [employer] Person Required: No Beliefs That Will Affect Care: None marital status: Current Living Situation: Spouse 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 How many Children do You have: 2 Feels Safe at Home: Yes during the past year weight has: remained stable Assistive Devices: None Allergies Allergies Allergy/AdvReac Type Severity Reaction Status Date / Time pollen extracts Allergy Mild runny nose Verified 01/11/24 12:29 adhesive Allergy Unknown TORE SKIN Verified 01/11/24 12:29 OFF WITH TAPE Home Meds Home Medications Medication Instructions Recorded Confirmed cholecalciferol (vitamin D3) 625 PO MONTHLY 11/28/23 01/11/24 mcg (25,000 unit) capsule amlodipine 5 mg tablet 5 mg PO DAILY 01/11/24 01/11/24 Previous Rx's Medication Instructions Recorded tadalafil 5 mg tablet 5 mg PO DAILY PRN sexual activity 01/11/24 #10 tabs lisinopril 20 mg tablet 20 mg PO QAM #90 tabs 02/09/24 Results & Data (ED) Vital Signs Vital Signs - 24 hr 02/09/24 11:14 02/09/24 11:53 02/09/24 12:23 Temperature 36.7 C Temperature Source Temporal Artery Scan Pulse Rate 58 L 63 Pulse Rate [Apical] 85 Pulse Strength [Apical] Respiratory Rate 17 19 Respiratory Effort / Characteristics Non-Labored Spontaneous Respiratory Depth Normal Respiratory Pattern Regular Blood Pressure 159/100 H Blood Pressure [Left Arm] 147/92 H Blood Pressure Mean 119 Blood Pressure Mean [Left Arm] 110 Pulse Oximetry 96 96 Oxygen Delivery Method Room Air Room Air Sepsis Recent Fever Within 48 Hours No Sepsis New/Unexplained Change in Mental Status N/A Sepsis Action Taken by Nursing No Action Required 02/09/24 13:05 02/09/24 13:52 Temperature Temperature Source Pulse Rate Pulse Rate [Apical] 57 L 53 L Pulse Strength [Apical] Normal Normal Respiratory Rate 19 19 Respiratory Effort / Characteristics Non-Labored Spontaneous Non-Labored Spontaneous Respiratory Depth Normal Normal Respiratory Pattern Regular Blood Pressure Blood Pressure [Left Arm] 138/102 H 153/94 H Blood Pressure Mean Blood Pressure Mean [Left Arm] 114 113 Pulse Oximetry 97 98 Oxygen Delivery Method Room Air Room Air Sepsis Recent Fever Within 48 Hours Sepsis New/Unexplained Change in Mental Status Sepsis Action Taken by Nursing Laboratory Data 02/09/24 11:30 02/09/24 11:30 Lab Results 02/09/24 02/09/24 Range/Units 11:30 11:40 WBC 8.15 (4.8-10.8) K/ul RBC 5.04 (4.70-6.10) M/uL Hgb 14.7 (14.0-18.0) g/dl POC Hgb 15.6 (14.0-18.0) g/dl Hct 45.0 (42.0-52.0) % POC Hct 46 (42-52) % MCV 89.3 (80.0-100.0) fL MCH 29.2 (25.0-34.0) pg MCHC 32.7 (32.0-36.0) g/dL RDW Std Deviation 42.1 (36.4-46.3) fL RDW Coeff of Tessa 12.8 (11.5-14.5) % Plt Count 266 (130-400) K/uL MPV 10.0 (9.4-12.4) fL Immature Gran % (Auto) 0.2 % Neut % (Auto) 70.9 % Lymph % (Auto) 18.4 % Winston % (Auto) 8.6 % Eos % (Auto) 1.3 % Baso % (Auto) 0.6 % Neut # (Auto) 5.77 (1.40-6.50) K/uL Lymph # (Auto) 1.50 (1.20-3.40) K/uL Winston # (Auto) 0.70 H (0.11-0.59) K/uL Eos # (Auto) 0.11 (0.00-0.50) K/uL Baso # (Auto) 0.05 (0.00-0.20) K/uL Immature Gran # (Auto) 0.02 (0.01-0.20) K/uL PT 10.3 (9.0-12.0) Seconds INR 0.9 (0.9-1.1) APTT 26 (21-31) Seconds PTT Ratio 1.0 POC Sodium 141 (135-144) mmol/L Sodium 139 (136-145) mmol/L POC Potassium 4.2 (3.3-5.0) mmol/L Potassium 4.2 (3.5-5.1) mmol/L POC Chloride 106 (101-112) mmol/L Chloride 106 (98-107) mmol/L Carbon Dioxide 28 (21-32) mmol/L POC Total CO2 26 (24-31) mmol/L Anion Gap 5 (3-11) POC Anion Gap 14.0 L (16-25) mmol/L POC BUN 26 H (7-18) mg/dl BUN 27 H (6-23) mg/dl Creatinine 2.15 H (0.6-1.4) mg/dl POC Creatinine 2.2 H (0.6-1.3) mg/dl Est Cr Clr Drug Dosing 50.7 ml/min eGFR 33.75 BUN/Creatinine Ratio 12.6 (10-20) Glucose 94 (70-99(Fasting)) mg/dl POC Glucose (other) 90 (70-99) mg/dl Calcium 9.4 (8.6-10.3) mg/dl POC Ioniz Calcium Jabari 1.27 (1.12-1.32) mmol/l Magnesium 1.9 (1.7-2.4) mg/dl Total Bilirubin 0.4 (0.2-1.0) mg/dl AST 13 (13-39) U/L ALT 13 (7-52) U/L Alkaline Phosphatase 67 (34-104) U/L Troponin I High Sens 7.0 (0-20) pg/ml Total Protein 7.5 (6.0-8.3) gm/dl Albumin 4.0 (3.4-5.0) gm/dl Globulin 3.5 (2.5-4.0) gm/dl Albumin/Globulin Ratio 1.1 (0.9-2) Administered Medications Discontinued Medications Aspirin (Aspirin Chew 324 Mg) 81 mg PO NOW STA Stop: 02/09/24 13:45 Last Admin: 02/09/24 13:50 Dose: 81 mg Documented By: MANUEL Clopidogrel Bisulfate (Clopidogrel Bisulfate 300 Mg Tab) 300 mg PO NOW STA Stop: 02/09/24 13:45 Last Admin: 02/09/24 13:50 Dose: 300 mg Documented By: MANUEL Sodium Chloride (Nss) 1,000 mls @ 999 mls/hr IV .Q1H1M ONE Stop: 02/09/24 13:26 Last Admin: 02/09/24 13:19 Dose: 999 mls/hr Documented By: MANUEL Ioversol (Optiray 320 125ml) 120 ml IV ONCE ONE Stop: 02/09/24 11:56 Last Admin: 02/09/24 11:55 Dose: 120 ml Documented By: CHRISTINA Imaging Data Radiologist's Impression: Head CT 02/09/24 11:27 CT angio neck with con, CT head/brain wo con CLINICAL HISTORY: neuro deficit, acute stroke suspected TECHNIQUE: Contiguous axial CT images of the head were acquired from the base of the skull to the vertex without intravenous contrast administration. CT angiography of the neck was performed following intravenous administration of iodinated contrast. Coronal and sagittal MIPS were obtained from the axial data set and were submitted for review. Automated dose lowering techniques and/or adjustment according to patient size were utilized for this examination. All measurements were calculated based on NASCET criteria. CT DOSE: 1143.67 mGy.cm Comparison: None available at the time of this dictation. FINDINGS: CT head: There is no acute intracranial hemorrhage or evidence of acute territorial infarction. No shift of the midline structures, mass effect, or extra-axial abnormalities are shown. Lungs and soft tissues are unremarkable. CTA Neck: A 3 vessel aortic arch is shown. There is no significant atherosclerotic plaque in the aortic arch or the origins of the innominate, left common carotid, and left subclavian arteries. The common carotid, external carotid, cervical segments of the internal carotid arteries, and the cervical segments of the vertebral arteries are patent without hemodynamically significant stenosis. The left vertebral artery is dominant. IMPRESSION: 1. No acute intracranial hemorrhage, evidence of acute territorial infarction, or other acute intracranial disease process. 2. No occlusion, hemodynamically significant stenosis, or dissection in the major cervical arteries. Assessment of stenosis of the internal carotid arteries is based on NASCET criteria. ACT 112: Negative or not required by law. Electronically signed by: Reji Diaz M.D. 02/09/2024 12:14 PM Head CTA 02/09/24 11:27 CT angio head w con CLINICAL HISTORY: 63 years-old Male with neuro deficit, acute stroke suspected. Acute head and neck pain with stroke like symptoms and left-sided facial droop COMPARISON STUDY: CT head of same day TECHNIQUE: Following the IV administration of 120 cc of Optiray, CT angiogram of the brain was performed from the skull base to the vertex. Images are reviewed in the axial, sagittal, and coronal planes. 3-D MIPS images are created and assessed. IV contrast was administered without complication. All measurements were obtained according to NASCET criteria. A dose lowering technique was utilized adhering to the principles of ALARA. FINDINGS: CT BRAIN: Dictated separately. CT ANGIOGRAM OF THE BRAIN: The imaged bilateral internal carotid arteries are patent. The bilateral anterior and middle cerebral arteries are also patent. The vertebrobasilar system and posterior cerebral arteries are widely patent. There is no aneurysm, high-grade stenosis, or proximal branch occlusion identified. Dural sinuses appear patent. IMPRESSION: Unremarkable CTA of the head. ACT 112: Negative or not required by law. The above report was generated using voice recognition software. It may contain grammatical, syntax or spelling errors. Electronically signed by: Sudhir Lofton M.D. 02/09/2024 12:15 PM Neck CTA 02/09/24 11:27 CT angio neck with con, CT head/brain wo con CLINICAL HISTORY: neuro deficit, acute stroke suspected TECHNIQUE: Contiguous axial CT images of the head were acquired from the base of the skull to the vertex without intravenous contrast administration. CT angiography of the neck was performed following intravenous administration of iodinated contrast. Coronal and sagittal MIPS were obtained from the axial data set and were submitted for review. Automated dose lowering techniques and/or adjustment according to patient size were utilized for this examination. All measurements were calculated based on NASCET criteria. CT DOSE: 1143.67 mGy.cm Comparison: None available at the time of this dictation. FINDINGS: CT head: There is no acute intracranial hemorrhage or evidence of acute territorial infarction. No shift of the midline structures, mass effect, or extra-axial abnormalities are shown. Lungs and soft tissues are unremarkable. CTA Neck: A 3 vessel aortic arch is shown. There is no significant atherosclerotic plaque in the aortic arch or the origins of the innominate, left common carotid, and left subclavian arteries. The common carotid, external carotid, cervical segments of the internal carotid arteries, and the cervical segments of the vertebral arteries are patent without hemodynamically significant stenosis. The left vertebral artery is dominant. IMPRESSION: 1. No acute intracranial hemorrhage, evidence of acute territorial infarction, or other acute intracranial disease process. 2. No occlusion, hemodynamically significant stenosis, or dissection in the major cervical arteries. Assessment of stenosis of the internal carotid arteries is based on NASCET criteria. ACT 112: Negative or not required by law. Electronically signed by: Reji Diaz M.D. 02/09/2024 12:14 PM Discharge Plan Visit Data Chief Complaint: TIA Symptoms Stated Complaint: SLURRED SPEECH/FACIAL DROOP, 2 DAYS AGO/CROSS EYED ED Provider: Sorin Millan Discharge Problem: TIA (transient ischemic attack), HTN (hypertension), CKD (chronic kidney disease) Forms Stand Alone Forms: My [facility] Prescriptions Prescriptions: No Action lisinopril 20 mg tablet 20 mg PO QAM Qty: 90 3RF cholecalciferol (vitamin D3) 625 mcg (25,000 unit) capsule PO MONTHLY Patient Comments: Take takes once monthly amlodipine 5 mg tablet 5 mg PO DAILY tadalafil 5 mg tablet 5 mg PO DAILY PRN (Reason: sexual activity) Qty: 10 2RF Rx Instructions: administer approximately 30min before sexual activity; do not use more than 1 dose per 24hrs Referrals Referrals: Daniela Ren, [Primary Care Provider] - Discharge Problem: HTN (hypertension) Qualifiers: Hypertension type: unspecified Qualified Code(s): I10 - Essential (primary) hypertension CKD (chronic kidney disease) Qualifiers: Chronic kidney disease stage: unspecified stage Qualified Code(s): N18.9 - Chronic kidney disease, unspecified
[2024-02-09 11:52] LABS: iSTAT Creatinine 2.2 mg/dl (0.6-1.3); iSTAT Hemoglobin 15.6 g/dl (14.0-18.0); iSTAT Ionized Calcium 1.27 mmol/l (1.12-1.32); iSTAT Potassium 4.2 mmol/L (3.3-5.0)
[2024-02-09] MEDS: OPTIRAY 320 125ml IV ONE (11:55)
[2024-02-09 11:57] LABS: Basophils # (auto) 0.05 K/uL (0.00-0.20); Basophils % (auto) 0.6 %; Eosinophils # (auto) 0.11 K/uL (0.00-0.50); Eosinophils % (auto) 1.3 %; Hemoglobin 14.7 g/dl (14.0-18.0); Immature Granulocytes # (auto) 0.02 K/uL (0.01-0.20); Immature Granulocytes % (auto) 0.2 %; Lymphocytes % (auto) 18.4 %; Mean Corpuscular Hemoglobin 29.2 pg (25.0-34.0); Mean Corpuscular Hgb Conc 32.7 g/dL (32.0-36.0); Mean Corpuscular Volume 89.3 fL (80.0-100.0); Monocytes % (auto) 8.6 %; Neutrophils # (auto) 5.77 K/uL (1.40-6.50); Neutrophils % (auto) 70.9 %; Platelet Count 266 K/uL (130-400); RDW Coefficient of Variation 12.8 % (11.5-14.5); RDW Standard Deviation 42.1 fL (36.4-46.3); Red Blood Count 5.04 M/uL (4.70-6.10); White Blood Count 8.15 K/ul (4.8-10.8)
[2024-02-09 12:10] LABS: Albumin Globulin Ratio 1.1 (0.9-2); BUN Creatinine Ratio 12.6 (10-20); Bilirubin,Total 0.4 mg/dl (0.2-1.0); Calcium 9.4 mg/dl (8.6-10.3); Creatinine Clr Calc Pharmacy 50.7 ml/min; Globulin 3.5 gm/dl (2.5-4.0); Magnesium 1.9 mg/dl (1.7-2.4); Potassium 4.2 mmol/L (3.5-5.1); Total Protein 7.5 gm/dl (6.0-8.3)
--- NOTE | 2024-02-09 12:16 | CT Scan Report ---
CT angio neck with con, CT head/brain wo con CLINICAL HISTORY: neuro deficit, acute stroke suspected TECHNIQUE: Contiguous axial CT images of the head were acquired from the base of the skull to the mary pierre without intravenous contrast administration. CT angiography of the neck was performed following intravenous administration of iodinated contrast. Coronal and sagittal MIPS were obtained from the ax ial data set and were submitted for review. Automated dose lowering techniques and/or adjustment acc ording to patient size were utilized for this examination. All measurements were calculated based on NASCET criteria. CT DOSE: 1143.67 mGy.cm Comparison: None available at the time of this dictation. FINDINGS: CT head: There is no acute intracranial hemorrhage or evidence of acute territorial infarction. No sh ift of the midline structures, mass effect, or extra-axial abnormalities are shown. Lungs and soft tissues are unremarkable. CTA Neck: A 3 vessel aortic arch is shown. There is no significant atherosclerotic plaque in the aor tic arch or the origins of the innominate, left common carotid, and left subclavian arteries. The co mmon carotid, external carotid, cervical segments of the internal carotid arteries, and the cervical segments of the vertebral arteries are patent without hemodynamically significant stenosis. The left vertebral artery is dominant. IMPRESSION: 1. No acute intracranial hemorrhage, evidence of acute territorial infarction, or other acute intrac ranial disease process. 2. No occlusion, hemodynamically significant stenosis, or dissection in the major cervical arteries. Assessment of stenosis of the internal carotid arteries is based on NASCET criteria. ACT 112: Negative or not required by law. Electronically signed by: Reji Diaz M.D. 02/09/2024 12:14 PM
--- NOTE | 2024-02-09 12:16 | CT Scan Report ---
CT angio head w con CLINICAL HISTORY: 63 years-old Male with neuro deficit, acute stroke suspected. Acute head and nec k pain with stroke like symptoms and left-sided facial droop COMPARISON STUDY: CT head of same day TECHNIQUE: Following the IV administration of 120 cc of Optiray, CT angiogram of the brain was perfor med from the skull base to the vertex. Images are reviewed in the axial, sagittal, and coronal planes . 3-D MIPS images are created and assessed. IV contrast was administered without complication. All me asurements were obtained according to NASCET criteria. A dose lowering technique was utilized adherin g to the principles of ALARA. FINDINGS: CT BRAIN: Dictated separately. CT ANGIOGRAM OF THE BRAIN: The imaged bilateral internal carotid arteries are patent. The bilateral anterior and middle cerebral arteries are also patent. The vertebrobasilar system and posterior cerebral arteries are widely mackay nt. There is no aneurysm, high-grade stenosis, or proximal branch occlusion identified. Dural sinuses appear patent. IMPRESSION: Unremarkable CTA of the head. ACT 112: Negative or not required by law. The above report was generated using voice recognition software. It may contain grammatical, syntax o r spelling errors. Electronically signed by: Sudhir Lofton M.D. 02/09/2024 12:15 PM
[2024-02-09 12:19] LABS: INR 0.9 (0.9-1.1); Partial Thromboplastin Time 26 Seconds (21-31); Prothrombin Time 10.3 Seconds (9.0-12.0)
--- NOTE | 2024-02-09 12:49 | Electrocardiogram Report ---
Test Reason : Blood Pressure : */* mmHG Vent. Rate : 53 BPM Atrial Rate : 53 BPM P-R Int : 150 ms QRS Dur : 96 ms QT Int : 428 ms P-R-T Axes : 38 -2 20 degrees QTcB Int : 401 ms Sinus bradycardia Abnormal ECG When compared with ECG of 28-Feb-2022 22:42, Vent. rate has decreased by 31 bpm QT has shortened Confirmed by Alexx Nath ([id number]) on 02/09/2024 12:48:52 PM Referred By: REFERRED SELF Confirmed By: Alexx Nath
--- OUTSIDE RECORDS SUMMARY | 2024-02-09 13:15 | External Medical Summary | Continuity of Care Document ---
Author Name Unknown Organization [id number] Address [address] [place] [id number] Care Team Providers Care Hearing Impaired Teacher Name Role Phone Daniela Ren Primary Care Physician [phone] Encounter [id number] Date(s): 02/06/24 - 02/06/24 [facility] [employer] [address] [id number] [facility] [address] [place] [id number] Encounter Diagnosis MCL sprain of right knee(Discharge Diagnosis) - 02/06/24 Discharge Disposition: Home or Self Care Attending Physician: MD Lemos Philip J Allergies, Adverse Reactions, Alerts No Known Allergies Assessment and Plan Extracted from: Title:Orthopaedics Office Visit Note Author:Davonte foley MD, Philip J Date:02/06/24 1.MCL sprain of right knee Based on his exam andhistory, the patient's findings are most consistent with a grade 1 MCL sprain of theright knee. He has been fitted with a hinged knee brace. He may continue withstraightahead activity as tolerated, but should limit any cutting ortwisting activities. He may advance activity as tolerated. I have asked him to contact the office or follow-upif he is not seeing much improvement in his symptoms over the nextmonth. Medications amLODIPine 5 mg oral tablet Start: 05/05/23 11:30:00 AM EDT, 1 tab, PO, Daily, Disp# 90 tab, Refills: 3, Pharmacy: [facility] #[id number] Start Date: 05/05/23 Status: Ordered lisinopril 20 mg oral tablet Start: 04/13/23 10:23:00 AM EST, 1 tab, PO, Daily Start Date: 04/13/23 Status: Ordered pantoprazole 40 mg oral delayed release tablet Start: 10/12/22 1:47:00 PM EDT, 1 tab, PO, Daily, PRN: dyspepsia Start Date: 10/12/22 Status: Ordered triamcinolone 0.1% topical ointment Start: 08/12/23 9:02:00 AM EDT, 1 appl, topical, qhs, Disp# 60 g, Refills: 1, Nightly as needed, Pharmacy: [facility] #[id number] Start Date: 08/12/23 Status: Ordered Vitamin D3 Start: 08/12/23 8:48:00 AM EDT, monthly Start Date: 08/12/23 Status: Ordered Mental Status 02/06/24 Barriers to Learning one year None evide nt Mandatory Health Literacy Documentation Yes Health Literacy Communication Barriers N ever Primary Language Mosoth[place] Problem List Condition Confirmation Course Effective Dates Status Health St atus Informant Ankle pain 1 Confirmed Active Chronic kidney disease (CKD) Confirmed Active Heel pain Confirmed Active HTN (hypertension) Confirmed Active Arm injury 2 Confirmed Active Left elbow pain Confirmed Active Finger pain, right 3 Confirmed Active Arthralgia of toe of right foot Confirmed Active Seasonal allergies Confirmed Active Sinus bradycardia Confirmed Active MCL sprain of right knee Confirmed Active 1B/L 2left forearm 3thumb and middle finger Diagnosis Diagnosis Type Effective Dates Health Status Cl inical Service Informant MCL sprain of right knee Discharge Diagnosis 02/06/24 Procedures Procedure Date Related Diagnosis Body Site Status [place] tooth extraction 1985 Completed Appendectomy 1976 Completed Cholecystectomy Completed Hernia Completed Oral 2 Completed 1extraction and 2006 2tumor removal Social History Social History Type Response Smoking Status Never smoked cigaret jessi Sex Male Sex Representation Male (finding) Ortho Outpt Note * MD Aminta, Nick Arredondo: PERFORM Event Display: Ortho Outpt Note Authored Date: [id number] Primary Care Provider DO Ren Allison B Chief Complaint Right medial knee pain continuous x 1 month History of Present Illness Nerissa is [id number] seen for evaluation of right medial knee pain for the past month. This started when heslipped on a muddysurface andfelland thinks there is a valgus force to hisknee. He had a sensation of instability when he stood up but has not had any true instabilitysince that time. He has not tried any type of knee braceand denies any prior history ofknee injury. He is still noted some discomfort withlateral and pivotingactivities. Physical Exam General: Appears well, ambulating comfortably, accompanied by hiswife. Right knee:Trace effusion, medial joint line pain. Pain-free with quadriceps activation. Normal patellar mobility. Pain but no laxity withvalgusstress. No pain or laxity withvarusstress. Negative Rehan's test, negative Guillermina's test. Diagnostic Results Orthopedic Radiological Report X-ray completed [facility] [address] [facility] Exam:Right knee series Comparison: None. Clinical indication:Right knee pain Findings:I have personally performed the interpretation of a4 view series of the right knee with AP, lateral, tunnel, and sunrise views. There are no acute findingsnoted. Joint spaces are relativelywell-maintained. A slight lateral patellar tilt is appreciated. No significant jointeffusion noted. Impression:Negative right knee series Assessment/Plan 1.MCL sprain of right knee Based on his exam andhistory, the patient's findings are most consistent with a grade 1 MCL sprain of theright knee. He has been fitted with a hinged knee brace. He may continue withstraightahead activity as tolerated, but should limit any cutting ortwisting activities. He may advance activity as tolerated. I have asked him to contact the office or follow-upif he is not seeing much improvement in his symptoms over the nextmonth. Problem List/Past Medical History Ongoing Ankle pain Arm injury Arthralgia of toe of right foot Chronic kidney disease (CKD) Finger pain, right Heel pain HTN (hypertension) Left elbow pain MCL sprain of right knee Seasonal allergies Sinus bradycardia Procedure/Surgical History [place] tooth extraction| Service Date: 1985Appendectomy| Service Date: 1976HerniaOralCholecystectomy Medications amLODIPine(amLODIPine 5 mg oral tablet), 5 mg= 1 tab, PO, Daily, 3 refills cholecalciferol(Vitamin D3) lisinopril(lisinopril 20 mg oral tablet), 20 mg= 1 tab, PO, Daily pantoprazole(pantoprazole 40 mg oral delayed release tablet), 40 mg= 1 tab, PO, Daily, PRN triamcinolone topical(triamcinolone 0.1% topical ointment), 1 appl, topical, qhs, 1 refills Allergies NKA Social History Smoking Status Never smoked cigarettes Family History Diabetes: Unknown. Heart disease: Unknown. Health Status Family Member(s) Recommendations Health Maintenance Pending(in the next year) OverDue Body Mass Index due04/03/22and every 366day Adult Influenza Vaccine due08/14/23and every 1year Due Adult COVID-19 Vaccination due02/07/24Unknown Frequency Adult Social Determinants of Health Screening due02/07/24Unknown Frequency Adult Tdap/Td Vaccine due02/07/24Unknown Frequency Colorectal Cancer Screening due02/07/24Unknown Frequency Hepatitis C Screening due02/07/24One-time only Lipid Screening due02/07/24Unknown Frequency Pneumococcal Vaccine Adults and Adolescents with Chronic Illness due02/07/24One-time only Shingles Vaccine due02/07/24One-time only Satisfied(in the past 1 year) There are no satisfied recommendations within the defined date range Electronic Signature on File Electronically Reviewed/Signed by: Nick Lemos MD Author Signature Dt/Tm:02/07/2024 12:27 PM Division of Sports Medicine [facility] Patient Care team information Care Team Personnel Name: DO Ren Allison B Position: Physician - Family Med Member Role: Primary Care Provider Address: [address] [place] [id number] [place] Care Team Related Persons Name: TIFFANY RICHARDSON"
[2024-02-09] MEDS: SODIUM CHLORIDE 0.9% 1,000 ML IV ONE (13:19)
[2024-02-09] MEDS: ASPIRIN CHEW 324 MG PO STA (13:50)
[2024-02-09] MEDS: CLOPIDOGREL BISULFATE 300 MG TAB PO STA (13:50)
--- NOTE | 2024-02-09 15:39 | History & Physical Report ---
Date of Service February 09, 2024 Assessment & Plan (1) Stroke-like symptoms: Plan: Patient is a 63-year-old male with prior TIA (2002) who presents for ongoing left-sided neck pain, an episode of dizziness, and ? 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 States he has been under a lot of stress. 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 Telestroke consulted, recommending aspirin + Plavix + workup. #Stroke-like symptoms Presenting w/ L sided facial droop x < 24hr; ? L sided facial droop on exam, no additional neuro deficits on exam, no current symptoms - Admit med/tele x 24hr - Telestroke recommending plavix + ASA - Neurochecks + NIHSS - Dysphagia screen x 1 - NPO until passed then heart healthy - CT head w/o acute findings - CTA head/neck w/o acute findings - 2D Echo Bubble pending - A1c 04/2023 5.9%; pending repeat - Lipids 04/2023- total 169, LDL 97, HDL 46, Tri 132; pending repeat - Troponin 7; EKG sinus bradycardia (50s) - Frequently outdoors; Pending tick panel - Unsure of FMHx --> pending FVL + antiphospholipid labs - Initiate DVT prevention therapy following MRI--> heparin - Not on statin-> Consider atorvastatin 40mg - ASA + Plavix given in ED; continue ASA 81mg + Plavix 75 mg x 21 days - MRI pending - Neurology consulted--> Appreciate neurology input + recs #HANNA/CKD stage II H/o CKD stage G2/A3, baseline Cr 1.7-2.0, follows w/ nephrology, most recent visit 11/25/2023; 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 predicted HR w/ PVCs; EF was 70% w/ stress, 55% w/ rest; 2022 EF 65% Chronic conditions: BPH/ED- Tadalafil daily per urology note 01/17 Sleep apnea- CPAP, may use home device HTN- Amlodipine, lisinopril Dispo: Admit Diet: Heart healthy VTE Prophylaxis: HOLD until MRI; then heparin Code: Full This document was dictated utilizing [employer]. Please excuse any grammatical errors that may be secondary to use of this software. 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 ED course: CBC grossly WNL with exception of monocytes 0.71; PT/INR WNL; CMP BUN 27, creatinine 2.15; troponin 7.0; head CT no acute findings, occlusion, or hemodynamically significant stenosis; head and neck CTA no acute findings; EKG sinus bradycardia, rate around 53 bpm.; Provided with NSS, clopidogrel 300, aspirin 81 in ED. Patient is 63-year-old male PMHx HTN, CKD stage III, hypertension, BPH, vitamin D deficiency who presents for episodic pain in his bilateral neck with episodes of dizziness and shortness of breath, that initially had started on Inna Phuong. Reported to have left-sided facial droop. 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 Did have L sided neck pain during this episode, describing it as a burning pain in his L neck that comes and goes. States that he had a little bit of dizziness at this time, but does not relate any additional symptoms during this episode to include chest pain, palpitations, headache, or weakness. States that he may have had an episode of left arm weakness, but it was very transient and has not recurred. Patient states that he did not come to the ED sooner because it was the holidays. His believes that he continues to have a left-sided facial droop, that which is why he decided to come in. Patient has a history of TIA in 2002 which presented as dysarthria, states that he was very stressed at this time believes this is what triggered it. Feels that he is under an immense amount of stress currently as well, so that this may be causing his symptoms. Patient took a.m. medications. Please see Dr. Johnson's attestation for adjustments/additions to treatment plan. Allergies Allergy/AdvReac Type Severity Reaction Status Date / Time pollen extracts Allergy Mild runny nose Verified 02/09/24 14:26 adhesive Allergy Unknown TORE SKIN Verified 02/09/24 14:26 OFF WITH TAPE Home Medications Medication Instructions Recorded Confirmed Type cholecalciferol (vitamin D3) 625 625 mcg PO MONTHLY 11/28/23 02/09/24 History mcg (25,000 unit) capsule amlodipine 5 mg tablet 5 mg PO DAILY 01/11/24 02/09/24 History tadalafil 5 mg tablet 5 mg PO DAILY PRN sexual activity 01/11/24 02/09/24 Rx #10 tabs lisinopril 20 mg tablet 20 mg PO QAM #90 tabs 02/09/24 02/09/24 Rx Past Med/Surg History Problem List (Updated 02/09/24 @ 16:08 by Harris Tinoco PA-C) Acute kidney injury Stroke-like symptoms CKD (chronic kidney disease) (Acute) HTN (hypertension) (Acute) TIA (transient ischemic attack) (Acute) BPH loc w urin obs/LUTS Obesity Hx laparoscopic cholecystectomy (03/22/22) Laparoscopic cholecystectomy. Dr. Cardenas Status post laparoscopic cholecystectomy Hypoxia Status post laparoscopic cholecystectomy BPH (benign prostatic hyperplasia) Other microscopic hematuria (Acute) Cholelithiasis (Acute) Chest pain (Acute) Bradycardia Chronic kidney disease, stage II (mild) Follows with Dr. Dela Cruz Hypertension Vitamin D deficiency Medical History Encounter for pre-operative examination BPH (benign prostatic hyperplasia) GERD (gastroesophageal reflux disease) History of skin cancer removed [place] (hard of hearing) History of TIA (transient ischemic attack) 2002 Bradycardia was told recently prior to endoscopy procedure that HR dropped into 30s on monitor. (@ [facility]) -- followed up with [facility] Cardio - Holter Monitor x 24 hrs approx 1 week ago -- results pending per pt Surgical History History of wisdom tooth extraction History of esophagogastroduodenoscopy (EGD) H/O colonoscopy (~2020) H/O hernia repair (03/02/17) Umbilical hernia repair Hx of appendectomy Hx of vasectomy H/O oral surgery Family History Mother Diabetes Other Adopted Social History Smoking Status: Never smoker Second Hand Exposure: No; Do You Dip or Chew Tobacco: No; Hx Alcohol Use: Yes Alcohol type: beer Hx Substance Use: No Preferred Language: Fijian Communication Ability: Effective Visual Impairment: No 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 Beliefs That Will Affect Care: None marital status: Current Living Situation: Spouse current occupational status: employed and retired current occupation: [employer] How many Children do You have: 2 Feels Safe at Home: Yes during the past year weight has: remained stable Assistive Devices: None Review of Systems Review of Systems: All systems reviewed & are unremarkable except as noted in Subjective Physical Exam Physical Exam: General: No acute distress Skin: Warm and dry, without rashes or lesions Head: Normocephalic, atraumatic Eyes: PERRL, conjunctivae clear, sclera non-icteric ENT: External ear and ear canal without swelling; nose atraumatic; good dentition, tongue normal appearance, pharynx normal without tonsillar swelling or exudate Neck: Supple, no LAD Cardio: RRR, no M/G/R, S1 and S2 normal Resp: No respiratory distress, Lungs CTA in all lobes bilaterally, no wheezes, rales, or rhonchi Abdomen: Soft, symmetric, nontender; No masses or hepatosplenomegaly; Bowel sounds normoactive MSK: No deformities, full ROM throughout; pulses palpable and equal; no edema. Neuro: II- PERRL, no VF deficits III, IV, - EOMs intact, no deviation, no nystagmus V- Normal sensation in all locations VII- Possible asymmetry L side slight droop, no nasolabial fold flattening VIII- Normal hearing to speech IX, X- Normal palatal elevation, no ulnar deviation XI- 5/5 head turn + shoulder shrug bilaterally XII- Midline tongue protrusion Motor: 5/5 strength throughout BUE/BLE; no pronator drift Reflexes: WNL throughout Sensory: Normal sensation throughout, no hemineglect, Romberg absent Coordination: Normal [id number], no tremor Gait: Unable to asses; no complaints Psych: Appropriate mood and affect; good judgement and insight. present in room at time of visit. Results & Data Results & Data Vital Signs (Past 12 Hours) Vital Signs Temp Pulse Pulse Resp BP BP Pulse Ox 02/09/24 13:52 53 L 19 153/94 H 98 02/09/24 13:05 57 L 19 138/102 H 97 02/09/24 12:23 63 02/09/24 11:53 85 19 147/92 H 96 02/09/24 11:14 36.7 C 58 L 17 159/100 H 96 O2 Del Method 02/09/24 13:52 Room Air 02/09/24 13:05 Room Air 02/09/24 12:23 02/09/24 11:53 Room Air 02/09/24 11:14 Room Air Laboratory Results 02/09/24 02/09/24 11:40 11:30 WBC 8.15 RBC 5.04 Hgb 14.7 POC Hgb 15.6 Hct 45.0 POC Hct 46 MCV 89.3 MCH 29.2 MCHC 32.7 RDW Std Deviation 42.1 RDW Coeff of Tessa 12.8 Plt Count 266 MPV 10.0 Immature Gran % (Auto) 0.2 Neut % (Auto) 70.9 Lymph % (Auto) 18.4 Harvey % (Auto) 8.6 Eos % (Auto) 1.3 Baso % (Auto) 0.6 Neut # (Auto) 5.77 Lymph # (Auto) 1.50 Harvey # (Auto) 0.70 H Eos # (Auto) 0.11 Baso # (Auto) 0.05 Immature Gran # (Auto) 0.02 PT 10.3 INR 0.9 APTT 26 PTT Ratio 1.0 POC Sodium 141 Sodium 139 POC Potassium 4.2 Potassium 4.2 POC Chloride 106 Chloride 106 Carbon Dioxide 28 POC Total CO2 26 Anion Gap 5 POC Anion Gap 14.0 L POC BUN 26 H BUN 27 H Creatinine 2.15 H POC Creatinine 2.2 H Est Cr Clr Drug Dosing 50.7 eGFR 33.75 BUN/Creatinine Ratio 12.6 Glucose 94 POC Glucose (other) 90 Calcium 9.4 POC Ioniz Calcium Jabari 1.27 Magnesium 1.9 Total Bilirubin 0.4 AST 13 ALT 13 Alkaline Phosphatase 67 Troponin I High Sens 7.0 Total Protein 7.5 Albumin 4.0 Globulin 3.5 Albumin/Globulin Ratio 1.[address] 02/09/24 11:27 CT angio neck with con, CT head/brain wo con CLINICAL HISTORY: neuro deficit, acute stroke suspected TECHNIQUE: Contiguous axial CT images of the head were acquired from the base of the skull to the vertex without intravenous contrast administration. CT angiography of the neck was performed following intravenous administration of iodinated contrast. Coronal and sagittal MIPS were obtained from the axial data set and were submitted for review. Automated dose lowering techniques and/or adjustment according to patient size were utilized for this examination. All m easurements were calculated based on NASCET criteria. CT DOSE: 1143.67 mGy.cm Comparison: None available at the time of this dictation. FINDINGS: CT head: There is no acute intracranial hemorrhage or evidence of acute territorial infarction. No shift of the midline structures, mass effect, or extra-axial abnormalities are shown. Lungs and soft tissues are unremarkable. CTA Neck: A 3 vessel aortic arch is shown. There is no significant atherosclerotic plaque in the aortic arch or the origins of the innominate, left common carotid, and left subclavian arteries. The common carotid, external carotid, cervical segments of the internal carotid arteries, and the cervical segments of the vertebral arteries are patent without hemodynamically significant stenosis. The left vertebral artery is dominant. IMPRESSION: 1. No acute intracranial hemorrhage, evidence of acute territorial infarction, or other acute intracranial disease process. 2. No occlusion, hemodynamically significant stenosis, or dissection in the major cervical arteries. Assessment of stenosis of the internal carotid arteries is based on NASCET criteria. ACT 112: Negative or not required by law. Electronically signed by: Reji Diaz M.D. 02/09/2024 12:14 PM Head CTA 02/09/24 11:27 CT angio head w con CLINICAL HISTORY: 63 years-old Male with neuro deficit, acute stroke suspected. Acute head and neck pain with stroke like symptoms and left-sided facial droop COMPARISON STUDY: CT head of same day TECHNIQUE: Following the IV administration of 120 cc of Optiray, CT angiogram of the brain was performed from the skull base to the vertex. Images are reviewed in the axial, sagittal, and coronal planes. 3-D MIPS images are created and assessed. IV contrast was administered without complication. All measurements were obtained according to NASCET criteria. A dose lowering technique was utilized adhering to the principles of ALARA. FINDINGS: CT BRAIN: Dictated separately. CT ANGIOGRAM OF THE BRAIN: The imaged bilateral internal carotid arteries are patent. The bilateral anterior and middle cerebral arteries are also patent. The vertebrobasilar system and posterior cerebral arteries are widely patent. There is no aneurysm, high-grade stenosis, or proximal branch occlusion identified. Dural sinuses appear patent. IMPRESSION: Unremarkable CTA of the head. ACT 112: Negative or not required by law. The above report was generated using voice recognition software. It may contain grammatical, syntax or spelling errors. Electronically signed by: Sudhir Lofton M.D. 02/09/2024 12:15 PM Neck CTA 02/09/24 11:27 CT angio neck with con, CT head/brain wo con CLINICAL HISTORY: neuro deficit, acute stroke suspected TECHNIQUE: Contiguous axial CT images of the head were acquired from the base of the skull to the vertex without intravenous contrast administration. CT angiography of the neck was performed following intravenous administration of iodinated contrast. Coronal and sagittal MIPS were obtained from the axial data set and were submitted for review. Automated dose lowering techniques and/or adjustment according to patient size were utilized for this examination. All measurements were calculated based on NASCET criteria. CT DOSE: 1143.67 mGy.cm Comparison: None available at the time of this dictation. FINDINGS: CT head: There is no acute intracranial hemorrhage or evidence of acute territorial infarction. No shift of the midline structures, mass effect, or extra-axial abnormalities are shown. Lungs and soft tissues are unremarkable. CTA Neck: A 3 vessel aortic arch is shown. There is no significant atherosclerotic plaque in the aortic arch or the origins of the innominate, left common carotid, and left subclavian arteries. The common carotid, external carotid, cervical segments of the internal carotid arteries, and the cervical segments of the vertebral arteries are patent without hemodynamically significant stenosis. The left vertebral artery is dominant. IMPRESSION: 1. No acute intracranial hemorrhage, evidence of acute territorial infarction, or other acute intracranial disease process. 2. No occlusion, hemodynamically significant stenosis, or dissection in the major cervical arteries. Assessment of stenosis of the internal carotid arteries is based on NASCET criteria. ACT 112: Negative or not required by law. Electronically signed by: Reji Diaz M.D. 02/09/2024 12:14 PM ECG Additional Comments: cc: ~ DICTATED BY: Alexx Nath MD Test Reason : Blood Pressure : */* mmHG Vent. Rate : 53 BPM Atrial Rate : 53 BPM P-R Int : 150 ms QRS Dur : 96 ms QT Int : 428 ms P-R-T Axes : 38 -2 20 degrees QTcB Int : 401 ms Sinus bradycardia Abnormal ECG When compared with ECG of 28-Feb-2022 22:42, Vent. rate has decreased by 31 bpm QT has shortened Confirmed by Alexx Nath ([id number]) on 02/09/2024 12:48:52 PM Referred By: REFERRED SELF Confirmed By: Alexx Nath Code Status & VTE Plan Code Status Full VTE Prophylaxis Plan VTE Prophylaxis will be ordered: Yes Supervising Physician Co-Signing Physician Notes Patient was seen and examined independently I discussed the case with Harris SANDERS I reviewed pertinent past medical social family history and also the plan of care and agree with the plan of care. 63-year-old male presented with sided facial changes which are intermittent and neck pain initially described on the left side but he describes to be in the right side. 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 Saw telestroke workup in the emergency department recommending dual antiplatelet therapy. At the time he had a CT scan of the head CTA of neck CTA of brain all without significant evaluation or workup. Patient does relate to some recent stressors related to familial stressors. Patient has a resting baseline bradycardia but no problems with blood pressure at the present time Patient does wear CPAP at night is wondering if some of his neck pain is because he wears his mask so tight wonders if some of his neck pain is because he wears his mask so tight. He also has mild HANNA currently Physically the patient exhibits no facial drooping or dysarthria he has no changes of muscular strength of arms or legs Patient be brought into our facility MRI scan of the brain to be undertaken continue dual antiplatelet therapies and modify risk factors. Any exceptions will be noted below PG Care Time/CCT Total # of Minutes Spent Total Time Spent with Patient: Total time spent is greater than 50% in coordination of care (as documented) at patient's floor/unit and/or counseling patient: Coding Level of Care Code 72646 INT INP/OBS CARE 3/75MIN Diagnoses Stroke-like symptoms R29.90 Acute kidney injury N17.9 Bradycardia R00.1 Chronic kidney disease, stage II (mild) N18.2
[2024-02-09] MEDS ORDERED: LORazepam 2 MG/1 ML VIAL IV STA (16:00)
[2024-02-09 17:15] LABS: Appearance Urine Clear (Clear); Bacteria Urine Automated None Seen (None Seen); Bilirubin Urine Negative (Negative); Blood Urine Negative (Negative); Cast Urine Automated 0-2 /lpf (0-2); Color Urine Yellow; Epithelial Cell Urine Auto 0-2 /hpf (0-2); Glucose Urine UA Negative (Negative); Ketones Urine Negative (Negative); Leukocyte Esterase Urine Negative (Negative); Nitrite Urine Negative (Negative); Protein Urine 2+ (Negative); RBC Urine Automated 0-2 /hpf (0-2); Specific Gravity Urine 1.014 (1.000-1.030); Urobilinogen Urine Negative (Negative); WBC Urine Automated 0-5 /hpf (0-5)
[2024-02-09 18:00] VITALS: BP 124/65; RESP 22; O2SAT 94
[2024-02-09 18:04] VITALS: PULSE 57
--- NOTE | 2024-02-10 16:05 | Discharge Summary ---
Discharge Summary Date of Service February 09, 2024 Principal Dx & Hospital Course #1 = Principal Diagnosis (1) Left against medical advice: During admission shift was called by the nurse the patient was frustrated did not receive his MRI scan yet. Patient threatened to leave AMA and subsequently did leave AMA prior to me being able to see him Notation below was from previous hospital stay (2) Stroke-like symptoms: Patient is a 63-year-old male with prior TIA (2002) who presents for ongoing left-sided neck pain, an episode of dizziness, and ? 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 States he has been under a lot of stress. 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 Telestroke consulted, recommending aspirin + Plavix + workup. #Stroke-like symptoms Presenting w/ L sided facial droop x < 24hr; ? L sided facial droop on exam, no additional neuro deficits on exam, no current symptoms - CT head w/o acute findings - CTA head/neck w/o acute findings - 2D Echo Bubble ordered - A1c 04/2023 5.9%; - Lipids 04/2023- total 169, LDL 97, HDL 46, Tri 132; - Troponin 7; EKG sinus bradycardia (50s) -Ordered FVL + antiphospholipid labs - Initiate DVT prevention therapy following MRI--> heparin - Not on statin-> Consider atorvastatin 40mg - ASA + Plavix given in ED; continue ASA 81mg + Plavix 75 mg x 21 days - MRI ordered - #HANNA/CKD stage II H/o CKD stage G2/A3, baseline Cr 1.7-2.0, follows w/ nephrology, most recent visit 11/25/2023; 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 ED course: CBC grossly WNL with exception of monocytes 0.71; PT/INR WNL; CMP BUN 27, creatinine 2.15; troponin 7.0; head CT no acute findings, occlusion, or hemodynamically significant stenosis; head and neck CTA no acute findings; EKG sinus bradycardia, rate around 53 bpm.; Provided with NSS, clopidogrel 300, aspirin 81 in ED. Patient is 63-year-old male PMHx HTN, CKD stage III, hypertension, BPH, vitamin D deficiency who presents for episodic pain in his bilateral neck with episodes of dizziness and shortness of breath, that initially had started on Inna Phuong. Reported to have left-sided facial droop. 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 Did have L sided neck pain during this episode, describing it as a burning pain in his L neck that comes and goes. States that he had a little bit of dizziness at this time, but does not relate any additional symptoms during this episode to include chest pain, palpitations, headache, or weakness. States that he may have had an episode of left arm weakness, but it was very transient and has not recurred. Patient states that he did not come to the ED sooner because it was the holidays. His believes that he continues to have a left-sided facial droop, that which is why he decided to come in. Patient has a history of TIA in 2002 which presented as dysarthria, states that he was very stressed at this time believes this is what triggered it. Feels that he is under an immense amount of stress currently as well, so that this may be causing his symptoms. Patient took a.m. medications. Please see Dr. Johnson's attestation for adjustments/additions to treatment plan. Discharge Plan Discharge Items Patient Disposition: Against Medical Advice Reason For Visit: CVA WORKUP Discharge Diagnosis: CVA workup Activity: Resume your previous activity Non-emergency contact: Primary Care Provider and Neurologist Call non-emergency contact if: your symptoms worsen Follow-up/Referrals: Daniela Ren, [Primary Care Provider] - Diet: Regular Addtl Attending Provider Instructions: Patient left AMA before workup was completed for stroke-like symptoms Pending Studies at Discharge: No Stand-Alone Forms: My [employer], Smoking Cessation Medications and DC Order Prescriptions: Continued lisinopril 20 mg tablet 20 mg PO QAM Qty: 90 3RF cholecalciferol (vitamin D3) 625 mcg (25,000 unit) capsule 625 mcg PO MONTHLY Patient Comments: Take takes once monthly amlodipine 5 mg tablet 5 mg PO DAILY tadalafil 5 mg tablet 5 mg PO DAILY PRN (Reason: sexual activity) Qty: 10 2RF Rx Instructions: administer approximately 30min before sexual activity; do not use more than 1 dose per 24hrs Discharge Orders: Left Against Medical Advice (Routine); Ordered 02/09/24 Ordered By: Janette Pineda Admission Data Admit Date/Time: 02/09/24 15:35 Attending Provider: Rodri Johnson Admit Provider: Rodri Johnson Primary Care Provider: Daniela Ren Other Providers: Rodri Johnson Hospital Stay Data Consultations 02/09/24 13:45 ED Decision to Admit Stat Diagnostic Imagining Performed 02/09/24 11:27 CT angio head w con Stat CT angio neck with con Stat CT head/brain wo con Stat Pending Results Patient Have Any Pending Studies at Discharge: No Discharge Instructions Given to Patient (Per Discharging Provider) Patient left AMA before workup was completed for stroke-like symptoms Total Time Total Time Spent Total Time Spent (In Minutes): Patient left AMA Coding Level of Care Code None Diagnoses Left against medical advice Z53.29 Stroke-like symptoms R29.90 Acute kidney injury N17.9 Bradycardia R00.1 Chronic kidney disease, stage II (mild) N18.2
== END 2024-02-09 19:30 | disposition left against medical advice (07) ==
LOC: 2N 11:06 → ED 11:06 → 2N 18:03